=== PATIENT | male | born 1940 | race Caucasian/White ===

== ENCOUNTER 2023-09-20 14:29 | Inpatient (IN) | payer MEDICARE, BC, SELFPAY ==
[2023-09-20] VITALS (12 sets, daily range): BP systolic 102–169; BP diastolic 50–80; PULSE 63–71; BMI 21.1; BMI 20.5
[2023-09-20 09:36] LABS: % Basophils 0.2 % (0-2); % Immature Granulocytes 0.4 % (0-0.5); % Lymphocytes 8.2 % (20.5-51.1); % Neutrophils 84.2 % (42.2-75.2); Absolute Immature Granulocytes 0.1 10^3/uL (0-0.05); Absolute Lymphocytes 1.2 10^3/uL (1.2-3.4); Absolute Neutrophils 12.5 10^3/uL (1.4-6.5); Hematocrit 37.1 % (39.0-52.0); Hemoglobin 12.7 g/dL (13.0-18.0); Mean Corp Hgb Conc. 34.2 g/dL (33.0-37.0); Mean Corpuscular Hgb 30.5 pg (27.0-31.0); Mean Platelet Volume 10.7 fL (7.4-10.4); Nucleated Red Blood Cells % 0 % (-); Platelet Count 251 10^3/uL (130-400); Red Blood Cell Count 4.17 10^6/uL (4.70-6.10); Red Cell Dist. Width 13.4 % (11.5-14.5); White Blood Cell Count 14.9 10^3/uL (4.8-10.8)
[2023-09-20 09:46] LABS: APTT 29.8 Sec (23.4-35.0); INR 1.11; PT 14.1 Sec (11.4-14.6)
[2023-09-20 09:57] LABS: ALT (SGPT) 23 U/L (0-50); AST (SGOT) 28 U/L (17-59); Albumin 3.9 g/dl (3.5-5.0); Alkaline Phosphatase 104 U/L (38-126); Blood Urea Nitrogen 26 mg/dl (9-20); Calcium 9.4 mg/dl (8.4-10.2); Carbon Dioxide 25 mmol/L (22-30); Chloride 107 mmol/L (98-107); Glucose 457 mg/dl (70-99); Potassium 4.4 mmol/L (3.5-5.1); Sodium 138 mmol/L (135-145); Total Bilirubin 0.8 mg/dl (0.2-1.3); Total Protein 6.3 g/dl (6.3-8.2); eGFR 45.34
--- NOTE | 2023-09-20 10:20 | ED.GENMED ---
History of Present Illness
General
Chief Complaint: Male Genito-Urinary Symptoms
Source: patient, spouse and family (Daughter at bedside)
Exam Limitations: dementia
Time Seen by Provider: 09/20/23 10:20
Nursing documentation reviewed up to this point in time: agreed with
Travel History
Have you had any contact with someone who has COVID-19?: No
Do you have any symptoms of coronavirus? Fever > 100 degrees, chills, cough, shortness of breath, sore throat, loss of taste or smell, muscle aches, or headache?: No
History of Present Illness
History of Present Illness:
83-year-old male with history of Alzheimer's dementia, cardiac stent, on Plavix, defibrillator implant, NIDDM, HTN, HLD presents stating he had taylor blood in his urine for the past few days.
states he started urinating bloody urine 2 days ago. 1 AM this morning patient got out of bed and said he was going to go into the other room, he walked there and then his heard him calling, she arrived to find him on the floor. There
was no loss of consciousness and no significant injury she was able to help him up. He fell again at 3 AM and she found him on the floor again, no loss of consciousness was able to help him up.
She states he has been more confused than usual lately. There has been no nausea or vomiting, patient denies headache, chest pain, SOB, abdominal pain.
He is able to articulate his urine problem but when asked he states he is having problems pointing to penis, states he has pain with urinating. No fever.
Past History
Past History
ED Past Medical History: HTN, Hypercholesterolemia and NIDDM
ED Past Surgical History: Cardiac (Defibrillator, cardiac stent)
Social History
Tobacco: Non-smoker
Alcohol: None
Personal:
Living: with family
Employment: Retired
Review of Systems
Review of Systems
Allergies reviewed?: Yes
All Other Systems: ROS reviewed and negative except as documented in HPI and ROS
Constitutional: Denies fever, fatigue or chills
Respiratory: Denies trouble breathing
Cardiac: Denies chest pain or syncope
ABD/GI: Denies abdominal pain, nausea, vomiting or diarrhea
: Reports dysuria and other (Bloody urine)
Musculoskeletal: Denies edema, neck pain or back pain
Skin: Reports no symptoms
Neurological: Reports other (More confused the past several days per family); Denies headache, weakness or numbness
Phy Exam
Physical Exam
Physical Exam:
GENERAL: No acute distress. A&Ox3.
CONSTITUTIONAL: Afebrile.
EYES: PERRL, conjunctivae normal
Neck: Supple
ENMT: moist mucus membranes, Pharynx nl
RESPIRATORY: Regular respirations, nonlabored, lungs clear.
CARDIOVASCULAR: Regular rate and rhythm, no murmurs, no rubs.
GI: Soft, nontender, normal BS
dried blood at urethral opening.
MUSCULOSKELETAL: No spinal bony tenderness. Back and ribs nontender. Moves with ease. Well perfused. No edema
SKIN: Warm, dry, pale
PSYCH: Normal mood and affect. Well kept, interactive.
NEUROLOGIC: Awake, alert and oriented. Mildly confused. No focal neurological deficits. Ambulates at his baseline steadily but slowly.
Course
Orders/Labs/Results
Orders:
Orders
09/20/23
Electrocardiogram (*1) Stat
Comment: ALREADY DONE
09/20/23 09:29
Type+Screen Urgent
Complete Blood Count/With Diff Urgent
Comprehensive Metabolic Panel Urgent
PTT Urgent
Prothrombin Time Urgent
09/20/23 10:23
0.9% Sodium Chloride 1000 ml [Nss] 1,000 ml IV BOLUS
09/20/23 10:39
Bladder Scan- Treatment ONCE
09/20/23 10:46
CT Cervical Spine W/o Iv Contr Urgent
Comment:
Reason For Exam: fall x 2, dementia, no neuro deficits
CT Head W/o Iv Contrast Urgent
Comment:
Reason For Exam: fall x 2, hit head, dementia
09/20/23 11:13
Tavarez [Tavarez Placement- Treatment] ONCE
Reason for insertion: Acute Kidney Injury
09/20/23 11:36
Urinalysis Reflex To Culture Urgent
Date Specimen was Collected: 09/20/23
Time Specimen was Collected: 09:05
Urine Microscopic Reflex Cult Urgent
09/20/23 13:38
Bedside Glucose- Treatment ONCE
09/20/23 14:11
Admit/Transfer Patient As Directed
Co-Sign Provider:
Level of Care: Inpatient admission
Assign to:: Medical/Surgical
Physician / Group: Urvashi
Diagnosis: Urinary Retention; Elevated Creatinine; Hyperglycemia
Reason for Hospitalization: IVFs
Expected length of stay greater than two midnights?: Yes
ELOS- Estimated Length of Stay in days: 3
I certify the patient meets the requirements for IP care: Yes
09/20/23 14:14
Code Status As Directed
Resuscitation Status: Full Code
09/20/23 16:26
0.9% Sodium Chloride 1000 ml [Nss] 1,000 ml IV 80 mls/hr
Acetaminophen [Tylenol] 650 mg PO Q4HPRN PRN
Dextrose 50%-Water [Dextrose 50% Syringe] 12.5 grams IV [id number] PRN
Glucagon [GlucaGen] 1 mg IM PRN PRN
Tamsulosin [Flomax] 0.4 mg PO DAILY
09/20/23 16:26
Activity As Directed
Activity Level: Out of Bed- Chair
Bedside Glucose Monitoring As Directed
Frequency: AC&HS
Comment: Change to q6h if pt on TPN, tube feeding or not eating
I&O [Intake/ Output] As Directed
Frequency: q12h
Orthostatic Vital Signs As Directed
Orthostatic VS Frequency: BID
Pneumatic Compression Sleeves As Directed
Type: Knee high
Vital Signs As Directed
Frequency: Per unit guidelines
Weight As Directed
Frequency: Daily
Ot Eval And Treat Routine
Pt Eval And Treat Routine
Activity Level: Out of Bed-Early Mobility
DX Deep Vein Thrombosis Video Routine
09/20/23 16:30
Insulin Aspart Corrective Low [Novolog Flexpen-Low Resistance] See Protocol SC AC
09/20/23 22:00
Atorvastatin [Lipitor] 40 mg PO HS
09/21/23 Breakfast
2000 calorie (17 carb) Diabetic
At Your Request: Limited Participation
Basic Metabolic Panel IN AM
Complete Blood Count/No Diff IN AM
Glycohemoglobin (HgbA1c) IN AM
09/21/23 08:00
Amiodarone [Pacerone] 200 mg PO DAILY
Aspirin Low Dose EC [Aspir Low (Enteric Coated)] 81 mg PO DAILY
Clopidogrel Bisulfate [Plavix] 75 mg PO DAILY
Finasteride [Proscar] 5 mg PO DAILY
Metoprolol Xl [Toprol Xl] 100 mg PO DAILY
Abnormal Lab Results
09/20/23 09/20/23 09/20/23
09:29 11:36 13:42
WBC 14.9 H 10^3/uL
(4.8-10.8)
RBC 4.17 L 10^6/uL
(4.70-6.10)
Hgb 12.7 L g/dL
(13.0-18.0)
Hct 37.1 L %
(39.0-52.0)
MPV 10.7 H fL
(7.4-10.4)
Abs Immat Gran (auto) 0.1 H 10^3/uL
(0-0.05)
Absolute Neuts (auto) 12.5 H 10^3/uL
(1.4-6.5)
Absolute Monos (auto) 1.0 H 10^3/uL
(0.1-0.6)
Neutrophils % 84.2 H %
(42.2-75.2)
Lymphocytes % 8.2 L %
(20.5-51.1)
BUN 26 H mg/dl
(9-20)
Creatinine 1.5 H mg/dL
(0.7-1.3)
Glucose 457 H* mg/dl
(70-99)
Urine Ketones Trace A
(Negative)
Ur Occult Blood Reflex 4+ A
(Negative)
Urine RBC 30-40 A /HPF
(0-2)
Urine Bacteria (Reflex) Few A
(Negative)
Urine Glucose 3+ A
(Negative)
POC Glucose 342 H mg/dl
(70-99)
09/20/23 09:29
09/20/23 09:29
Vital Signs
Initial and Last Documented VS:
Initial Vital Signs
Temp Pulse Resp BP Pulse Ox
98.6 F 73 16 146/60 99
09/20/23 08:45 09/20/23 08:45 09/20/23 08:45 09/20/23 08:45 09/20/23 08:45
Last Documented Vital Signs
Temp Pulse Resp BP Pulse Ox
98.7 F 60 12 147/77 98
09/20/23 17:01 09/20/23 18:16 09/20/23 17:01 09/20/23 18:16 09/20/23 17:01
MDM/Problems Addressed
Differential Diagnosis Includes:
DM hyperglycemia, DKA, infection, UTI, bladder bladder malignancy
MDM/Problems Addressed:
83-year-old male with history of Alzheimer's dementia, cardiac stent, on Plavix, defibrillator implant, NIDDM, HTN, HLD presents stating he had taylor blood in his urine for the past few days.
states he started urinating bloody urine 2 days ago. 1 AM this morning patient got out of bed and said he was going to go into the other room, he walked there and then his heard him calling, she arrived to find him on the floor. There
was no loss of consciousness and no significant injury she was able to help him up. He fell again at 3 AM and she found him on the floor again, no loss of consciousness was able to help him up.
She states he has been more confused than usual lately. There has been no nausea or vomiting, patient denies headache, chest pain, SOB, abdominal pain.
He is able to articulate his urine problem but when asked he states he is having problems pointing to penis, states he has pain with urinating. No fever.
09/20/2023 1021 AM
CBC: WBC 14.9
CMP: BUN/creat 26/1.5, no previous records to compare, glucose 457
09/20/2023 1114 AM
Postvoid bladder scan over 500 and bladder
Will order [address] way tavarez catheter in anticipation of possible CBI
09/20/2023 1248 PM
Tavarez inserted, there was a dried blood around the tip of the penis, urine was initially pink-tinged after IVFs urine now starting to get a dark jose color. No clots
UA: 4+ occult blood, 30-40 RBCs, no WBCs
Head CT: Radiology report read: No acute intracranial abnormalities
C-spine CT radiology report read: No acute abnormality. DJD
No anion gap
09/20/2023 1343 PM
After IV fluids repeat fingerstick blood sugar
Patient is an elderly frail male with a generalized weakness, two falls during the night, more confused, hyperglycemia, urine retention, hematuria, abnormal kidney functions (nothing to compare historically)
Plan: Admit, Hospitalist notified of admission
Chronic conditions affecting care: DM, HTN and CAD
*Critical Care Note
Total Time (30-74mins, 75-104mins- exclusive of procedures): Not Applicable
ED Attending Note
-
Portions of this chart may have been created with voice recognition software.� Occasional wrong word or��sound alike� substitutions may have occurred due to the inherent limitations of voice recognition software.
Discharge Plan
Departure
Patient Disposition: Admit
Date of Disposition: 09/20/23
Time of Disposition: 13:50
Presentation/result/management discussed w/ accepting MD/DO: Hospitalist
Condition: Fair
Discharge Problem:
Weakness generalized, Hematuria, Acute retention of urine, CASEY (acute kidney injury), Fall, Hyperglycemia due to diabetes mellitus
Interventions
Interventions:
*Risk Screen - Suicide Last Done: 09/20/23 17:06
*General Assessment Last Done: 09/20/23 08:45
*Neglect/Abuse Screening Last Done: 09/20/23 08:45
ED- Fall Risk Assessment Last Done: 09/20/23 16:26
*ED COVID-19 Vaccine History Last Done: 09/20/23 17:06
*Nursing Disposition Last Done: 09/20/23 16:26
ED-Male Genitourinary Assessment Last Done: 09/20/23 10:41
Discharge Date and Time
Discharge Date/Time: 09/20/23 16:32
--- NOTE | 2023-09-20 10:46 | EDRN ---
per , pt was found on the floor at 1am and at 3am this morning. unknown LOC but pt is on plavix. states pt has been more confused than normal. pt answers all orientation questions slowly but correctly. states the pt normally ambulates
with a cane. also states the pt has had hematuria x2 days.
[2023-09-20] MEDS: NSS 1000 IV ×2 (11:37→16:57)
[2023-09-20 11:46] LABS: Urine Albumin Trace (Neg - Trace); Urine Bilirubin Negative (Negative); Urine Character Clear (Clear); Urine Color Yellow; Urine Glucose 3+ (Negative); Urine Ketone Trace (Negative); Urine Leukocyte Negative (Negative); Urine Nitrite Negative (Negative); Urine Occult Blood 4+ (Negative); Urine Specific Gravity 1.015 (<1.030); Urine Urobilinogen Negative (Neg - 1+)
[2023-09-20 11:51] LABS: Urine Bacteria Few (Negative); Urine Red Blood Cell 30-40 /HPF (0-2); Urine White Cell 0-2 /HPF (0-5)
[2023-09-20 13:44] LABS: Glucose - Point of Care 342 mg/dl (70-99)
--- NOTE | 2023-09-20 14:26 | HPS.HSE ---
Addendum entered and electronically signed by Marcelino Landin MD 09/20/23 15:49:
Pt is obviously weak with decreased cognitive fxn
Seen independently and agree with PA note
Lungs clear
CV reg
Abd soft, nondistended
Imp:Bladder outlet obstruction
NIDDM with hyperglycemia
SDAT
P:IVF
recheck UA with C&S
empiric abx
reviewed with EPI Morfin
Original Note:
Family Physician
-
Family Physician: Kenya Mariee
Chief Complaint
-
Multiple Falls
History of Present Illness
Pt is an 83yo M with a past medical history of HTN, HLD, DM-II, BPH and Dementia who is presenting to the ED c/o having fallen twice last night. History was limited due to cognitive impairment. He reports having difficulty sleeping last night due to
abdominal discomfort. He states he had gotten up and fallen twice throughout the night prior to being brought into the hospital by his . The patient was unable to provide any additional details. Patient's was initially in the emergency
department but left to return home. I did attempt to call patient's without answer.
Medical History
Past Medical History
Past Medical History: Reports Other
Additional Past Medical History:
Coronary Artery Disease s/p Stent in December 2022
Essential Hypertension
Hyperlipidemia
Diabetes Mellitus
Alzheimer's Dementia
BPH
Past Surgical History: Reports Other
Additional Past Surgical History:
Defibrillator
Social History
Unable to obtain full social history at this time due to: Dementia
Family History
Family History: Unable to Obtain
Allergies / Home Medications
Allergies reflects when Allergies were last updated in [facility].
Home Medications with original date entered in [facility]
Allergy/Medication List:
Allergies
Allergy/AdvReac Type Severity Reaction Status Date / Time
aspirin Allergy BLEEDING Verified 09/20/23 08:44
Home Medications
acetaminophen 325 mg tablet (Tylenol) 650 mg PO Q4HPRN PRN mild pain 09/20/23
amiodarone 200 mg tablet 200 mg PO DAILY 09/20/23
aspirin 81 mg tablet,delayed release 81 mg PO DAILY 09/20/23
atorvastatin 40 mg tablet (Lipitor) 40 mg PO HS 09/20/23
clopidogrel 75 mg tablet (Plavix) 75 mg PO DAILY 09/20/23
cyanocobalamin (vitamin B-12) 1,000 mcg tablet 1,000 mcg PO DAILY 09/20/23
finasteride 5 mg tablet 5 mg PO DAILY 09/20/23
metformin 500 mg tablet 500 mg PO BID 09/20/23
metoprolol succinate 200 mg tablet,extended release 24 hr (Toprol XL) 100 mg PO DAILY 09/20/23
Review of Systems
-
Unable to obtain full review of systems at this time due to: Dementia
Physical Exam
Vital Signs
Vital Signs
Temp Pulse Resp BP Pulse Ox
98.6 F 62 15 159/62 96
09/20/23 08:45 09/20/23 14:15 09/20/23 14:15 09/20/23 14:00 09/20/23 14:15
Physical Exam
General: Comfortable and Conversant
HEENT: Moist mucous membranes and Atraumatic
Respiratory: Clear and Non Labored Respirations
Cardiac: S1/S2 and Regular Rhythm
GI: Soft and Non Tender
Genito-urinary: Cintron
Musculoskeletal: No Clubbing, No Cyanosis and No Edema
Skin: Warm and Dry
Neuro: Awake, Alert and Nonfocal/grossly intact
Psych: Calm
Laboratory Results
-
09/20/23 09:29
09/20/23 09:29
Laboratory Results
PT 14.1 Sec (11.4-14.6) 09/20/23 09:29
INR 1.11 09/20/23:
APTT 29.8 Sec (23.4-35.0) 09/20/23:
Total Bilirubin 0.8 mg/dl (0.2-1.3) 09/20/23:
AST 28 U/L (17-59) 09/20/23:
ALT 23 U/L (0-50) 09/20/23:
Alkaline Phosphatase 104 U/L (38-126) 09/20/23:
Data Reviewed
-
CT Scan: Report Reviewed by me
Lab Data: Labs Reviewed by me
Impression/Plan
-
Elevated Creatinine, suspect CASEY in setting of urinary retention
-Continue IVFs
-Recheck creatinine in AM
Urinary Retention
-Cintron catheter placed in ED
-Start Flomax
-Recheck repeat urinalysis with reflex to culture
-Start Rocephin after repeat urine sample obtained
Type II Diabetes Mellitus - Uncontrolled
-Check HgbA1c
-Hold metformin due to mildly elevated creatinine
-Monitor sugars and continue coverage insulin
Coronary Artery Disease s/p Stent in December 2022 (unknown hospital)
-Continue aspirin and Plavix
-Patient is maintained on amiodarone though the exact reason is unknown
Essential Hypertension
-Continue metoprolol
Hyperlipidemia
-Continue atorvastatin
Alzheimer's Dementia
-Monitor for mood/behavior changes
BPH
-Continue finasteride
DVT proph: SCDs
Code Status: Attempted to call to review code status without answer at home. Patient will be Full Code until able to review with family.
[2023-09-20 15:02] LABS: Urine Albumin 1+ (Neg - Trace); Urine Bilirubin Negative (Negative); Urine Character Slightly Cloudy (Clear); Urine Color Straw; Urine Glucose 3+ (Negative); Urine Ketone Negative (Negative); Urine Leukocyte Trace (Negative); Urine Nitrite Negative (Negative); Urine Occult Blood 4+ (Negative); Urine Specific Gravity 1.015 (<1.030); Urine Urobilinogen Negative (Neg - 1+)
[2023-09-20 15:09] LABS: Urine Amorphous SEEN
[2023-09-20 15:10] LABS: Urine Red Blood Cell >100 /HPF (0-2)
[2023-09-20 15:11] LABS: Urine Bacteria Moderate (Negative)
[2023-09-20] MEDS: ROCEPHIN 1000 MG IV (15:19)
[2023-09-20] MEDS: FLOMAX 0.400000000000000022 MG PO (16:56)
[2023-09-20 17:01] LABS: Glucose - Point of Care 292 mg/dl (70-99)
[2023-09-20] MEDS: NOVOLOG FLEXPEN-LOW RESISTANCE 2 UNITS SC (17:41)
--- NOTE | 2023-09-20 18:26 | PTCARENOTE ---
Notified provider & crosscover via TT that the patient had some blood-tinged urine in his tavarez bag.
[2023-09-20] MEDS: LIPITOR 40 MG PO (21:24)
[2023-09-20 21:25] LABS: Glucose - Point of Care 325 mg/dl (70-99)
[2023-09-21] MEDS: NSS 1000 IV ×2 (05:01→17:51)
[2023-09-21 05:16] VITALS: BMI 21.0
[2023-09-21 07:08] LABS: Hematocrit 35.9 % (39.0-52.0); Hemoglobin 11.7 g/dL (13.0-18.0); Mean Corp Hgb Conc. 32.6 g/dL (33.0-37.0); Mean Corpuscular Hgb 30.4 pg (27.0-31.0); Mean Corpuscular Volume 93.2 fL (80.0-94.0); Mean Platelet Volume 11.1 fL (7.4-10.4); Platelet Count 210 10^3/uL (130-400); Red Blood Cell Count 3.85 10^6/uL (4.70-6.10); Red Cell Dist. Width 13.5 % (11.5-14.5); White Blood Cell Count 10.5 10^3/uL (4.8-10.8)
[2023-09-21 07:18] LABS: Glucose - Point of Care 244 mg/dl (70-99)
[2023-09-21 07:32] LABS: Blood Urea Nitrogen 24 mg/dl (9-20); Calcium 8.4 mg/dl (8.4-10.2); Carbon Dioxide 28 mmol/L (22-30); Chloride 110 mmol/L (98-107); Estimated Creatinine Clearance 45 ml/min; Glucose 233 mg/dl (70-99); Potassium 4.6 mmol/L (3.5-5.1); Sodium 139 mmol/L (135-145); eGFR 59.26
[2023-09-21 07:45] VITALS: BP 168/74
[2023-09-21] MEDS: ASPIR LOW (ENTERIC COATED) 81 MG PO (08:13)
[2023-09-21] MEDS: PACERONE 200 MG PO (08:13)
[2023-09-21] MEDS: FLOMAX 0.400000000000000022 MG PO (08:13)
[2023-09-21] MEDS: PROSCAR 5 MG PO (08:13)
[2023-09-21] MEDS: NOVOLOG FLEXPEN-LOW RESISTANCE 2 UNITS SC (08:13)
[2023-09-21] MEDS: PLAVIX 75 MG PO (08:13)
[2023-09-21] MEDS: TOPROL XL 100 MG PO (08:16)
[2023-09-21 08:50] LABS: Glycohemoglobin (HgbA1c) 12.8 % (4.0-5.6)
--- NOTE | 2023-09-21 09:27 | W.PN.HOSP.TC ---
Today's Communication/Plan
-
see bold
Assessment / Plan
Assessment / Plan
#Acute urinary retention
#BPH
Tavarez inserted in the ED, started on Flomax
Continue proscar, check RBUS
#Suspected urinary tract infection
Continue Rocephin day 2, follow-up on cultures
#Acute kidney injury
Due to urinary retention
Creatinine 1.2 today, was 1.5 upon admission
#Uncontrolled type 2 diabetes
Hemoglobin A1c 12.8
He is only on metformin at home
Start Lantus 15 units at bedtime, NovoLog 5 units AC 3 times daily
Consult diabetes nurse practitioner
Coronary Artery Disease s/p Stent in December 2022 (unknown hospital)
-Continue aspirin and Plavix
-Patient is maintained on amiodarone though the exact reason is unknown
Essential Hypertension
-Continue metoprolol
Hyperlipidemia
-Continue atorvastatin
Alzheimer's Dementia
-Monitor for mood/behavior changes
DVT proph: SCDs
Code Status:� DNR
Updated on phone 09/21
Total time spent to see the patient on the floor, examine the patient, review data and lab results, discuss treatment plan with patient, nursing staff around 51 minutes.
Physical Exam
General: Elderly, no acute distress
HEENT: Normocephalic, Atraumatic, EOMI, MMM
Respiratory: Clear to Auscultation bilaterally
Cardiac: Normal S1/S2, Regular Rate and Rhythm
GI: Soft, Nontender, Nondistended, Normal Bowel Sounds
: +tavarez
Extremities: No Clubbing, Cyanosis, or Edema
Neuro: Pleasantly confused
Anticipated Discharge: 24 - 48 hours
Subjective/Interval History
-
Date of Service: September 21, 2023
Patient reports feeling better. Abdominal discomfort relieved with Tavarez. Continues to be confused.
Objective Data
-
Labs:
Laboratory Results
09/21/23
05:54
WBC 10.5
Hgb 11.7 L
Hct 35.9 L
Plt Count 210
Sodium 139
Potassium 4.6
Chloride 110 H
Carbon Dioxide 28
BUN 24 H
Creatinine 1.2
Glucose 233 H
Calcium 8.4
Vital Signs:
Vital Signs
Temp Pulse Resp BP Pulse Ox
98.1 F 58 16 168/74 97
09/21/23 07:45 09/21/23 07:45 09/21/23 07:45 09/21/23 07:45 09/21/23 07:45
I&O
09/20/23 09/21/23 09/22/23
06:59 06:59 06:59
Intake Total 1919 / 1919
Output Total 1500 / 1500
Balance 420 / 420
[2023-09-21] MEDS: NOVOLOG FLEXPEN 5 UNITS SC ×2 (09:38→12:18)
[2023-09-21 11:17] VITALS: BP 155/61; PULSE 64; O2SAT 97
[2023-09-21 11:21] VITALS: BP 155/61; PULSE 64; O2SAT 97
[2023-09-21 12:00] VITALS: BP 152/65; BP 162/59; BP 174/62; PULSE 63; PULSE 64; PULSE 68
[2023-09-21 12:08] LABS: Glucose - Point of Care 313 mg/dl (70-99)
[2023-09-21] MEDS: NOVOLOG FLEXPEN-LOW RESISTANCE 4 UNITS SC (12:17)
[2023-09-21] MEDS: STERILE WATER FOR INJECTION 10 ML IV (14:31)
[2023-09-21] MEDS: ROCEPHIN 1000 MG IV (14:31)
--- NOTE | 2023-09-21 14:37 | PN.DE.MGMTRT ---
Insulin Management
- -
09/21/2023: Diabetes management Consult
83 year old male admitted with bladder outlet obstruction with suspected UTI.
PMH includes: HTN, HLD, BPH, Dementia and DM-II, A1C 12.8%. Pt is pleasantly confused, unable to interview due to cognitive impairment, no family at bedside. Chart review indicates pt was taking Metformin 500mg BID, no other DM medications [employer].
Glucose was 457 on admission, Cr 1.5-->1.2, eGFR 59.26 today.
Current diabetes regimen includes: Lantus 15 units (1st dose scheduled for tonight @ ), NovoLog 5 units AC and low corrective
Glucose has remained consistently elevated, premeal 200 to 300's with FBG of 233 this AM.
Will increase AC NovoLog from 5 units to 7 units and change to moderate corrective.
Resume Metformin at increased dose of 1000 mg BID, 1st dose at 1700 with dinner.
Cont Lantus 15 units dose that has been ordered for tonight, will reassess in AM and adjust insulin regimen as necessary.
Diabetes History
- -
Type of Diabetes: 2
Pre-Admission Diabetes Regimen
09/21/23
05:54
Creatinine 1.2
Lab Results
Hemoglobin A1c 12.8 % (4.0-5.6) H 09/21/23 05:54
Insulin Pump Settings
IP Diabetes Regimen
09/20/23 09/20/23 09/21/23
17:00 21:23 05:54
Glucose 233 H
POC Glucose 292 H 325 H
09/21/23 09/21/23
07:17 12:06
Glucose
POC Glucose 244 H 313 H
Meal type: Breakfast
Amount consumed: 100%
Patient Education
[2023-09-21 15:15] VITALS: BP 166/70; BP 170/74
--- NOTE | 2023-09-21 15:58 | CM ---
compensation manager reviewed patient's chart and met with patient and spoke with patient's spouse by phone, per patient's spouse patient is independent with adl's and uses a cane with ambulation, patient's home is one story, no steps to enter. Patient has
a prescription plan and uses [facility] pharmacy.
PCP: Kenya Mariee
Plan; To follow with patient progress for discharge planning needs.
[2023-09-21 16:28] VITALS: BMI 21.0
[2023-09-21 16:40] LABS: Glucose - Point of Care 263 mg/dl (70-99)
[2023-09-21] MEDS: NOVOLOG FLEXPEN 7 UNITS SC (16:50)
[2023-09-21] MEDS: GLUCOPHAGE 1000 MG PO (16:50)
[2023-09-21] MEDS: NOVOLOG FLEXPEN-MODERATE RESISTANCE 5 UNITS SC (16:51)
[2023-09-21] MEDS: LIPITOR 40 MG PO (21:49)
[2023-09-21 21:50] LABS: Glucose - Point of Care 154 mg/dl (70-99)
[2023-09-21] MEDS: LANTUS 0.149999999999999994 UNITS SC (21:50)
[2023-09-21] MEDS: TYLENOL 650 MG PO (21:50)
[2023-09-21 22:45] VITALS: BP 173/72
[2023-09-22] MEDS: NSS 1000 IV (04:50)
[2023-09-22] MEDS: TOPROL XL 100 MG PO (05:05)
[2023-09-22] MEDS: PACERONE 200 MG PO (05:05)
[2023-09-22] MEDS: TYLENOL 650 MG PO (05:08)
--- NOTE | 2023-09-22 07:47 | PN.DE.MGMTRT ---
Insulin Management
- -
09/21/2023: Diabetes management Consult
83 year old male admitted with bladder outlet obstruction with suspected UTI.
PMH includes: HTN, HLD, BPH, Dementia and DM-II, A1C 12.8%. Pt is pleasantly confused, unable to interview due to cognitive impairment, no family at bedside. Chart review indicates pt was taking Metformin 500mg BID, no other DM medications [employer].
Glucose was 457 on admission, Cr 1.5-->1.2, eGFR 59.26 today.
Current diabetes regimen includes: Lantus 15 units (1st dose scheduled for tonight @ HS), NovoLog 5 units AC and low corrective
Glucose has remained consistently elevated, premeal 200 to 300's with FBG of 233 this AM.
Will increase AC NovoLog from 5 units to 7 units and change to moderate corrective.
Resume Metformin at increased dose of 1000 mg BID, 1st dose at 1700 with dinner.
Cont Lantus 15 units dose that has been ordered for tonight, will reassess in AM and adjust insulin regimen as necessary.
09/22/2023 Diabetes Management Follow up
Novolog increased from 5 to 7 units, first dose with dinner. HS glucose 154. Did require 5 units corrective insulin. Will increase AC novolog to 10 units.. Lantus 15 units started @ HS last night. Fasting glucose not yet reported, will assess
to determine in adjustment needed.
Diabetes History
- -
Type of Diabetes: 2
Pre-Admission Diabetes Regimen
Lab Results
Hemoglobin A1c 12.8 % (4.0-5.6) H 09/21/23 05:54
Insulin Pump Settings
IP Diabetes Regimen
09/21/23 09/21/23 09/21/23
12:06 16:38 21:49
POC Glucose 313 H 263 H 154 H
Meal type: Breakfast
Amount consumed: 100%
Patient Education
[2023-09-22 07:55] LABS: Glucose - Point of Care 169 mg/dl (70-99)
[2023-09-22 08:00] VITALS: BP 108/75
[2023-09-22] MEDS: NOVOLOG FLEXPEN SC (08:21)
[2023-09-22 08:22] LABS: Hematocrit 39.5 % (39.0-52.0); Mean Corp Hgb Conc. 32.9 g/dL (33.0-37.0); Mean Corpuscular Volume 91.2 fL (80.0-94.0); Mean Platelet Volume 10.7 fL (7.4-10.4); Platelet Count 225 10^3/uL (130-400); Red Blood Cell Count 4.33 10^6/uL (4.70-6.10); Red Cell Dist. Width 13.1 % (11.5-14.5); White Blood Cell Count 13.3 10^3/uL (4.8-10.8)
[2023-09-22] MEDS: GLUCOPHAGE 1000 MG PO ×2 (08:23→18:27)
[2023-09-22] MEDS: FLOMAX 0.400000000000000022 MG PO (08:23)
[2023-09-22] MEDS: PLAVIX 75 MG PO (08:23)
[2023-09-22] MEDS: PROSCAR 5 MG PO (08:24)
[2023-09-22] MEDS: ASPIR LOW (ENTERIC COATED) 81 MG PO (08:24)
[2023-09-22 08:54] LABS: Blood Urea Nitrogen 15 mg/dl (9-20); Calcium 8.7 mg/dl (8.4-10.2); Carbon Dioxide 24 mmol/L (22-30); Chloride 102 mmol/L (98-107); Estimated Creatinine Clearance 54 ml/min; Glucose 182 mg/dl (70-99); Magnesium 1.7 mg/dl (1.6-2.3); Potassium 3.6 mmol/L (3.5-5.1); Sodium 137 mmol/L (135-145); eGFR > 60.00
[2023-09-22] MEDS: NOVOLOG FLEXPEN 10 UNITS SC ×3 (09:25→18:27)
[2023-09-22] MEDS: NOVOLOG FLEXPEN-MODERATE RESISTANCE 1 UNITS SC ×2 (09:25→13:42)
--- NOTE | 2023-09-22 10:26 | W.PN.HOSP.TC ---
Today's Communication/Plan
-
see bold
Assessment / Plan
Assessment / Plan
#Acute urinary retention
#BPH
Tavarez inserted in the ED 09/20, started on Flomax
Continue proscar, RBUS negative for hydronephrosis, does show left renal cyst and right renal cyst
PT rec SNF
# UTI ruled out
Urine culture negative, stop Rocephin
#Acute kidney injury
Due to urinary retention
Creatinine 1.0 today, was 1.2, was 1.5 upon admission
#Uncontrolled type 2 diabetes
Hemoglobin A1c 12.8
He is only on metformin at home
Continue insulin adjustments as per diabetes nurse practitioner
Patient has dementia, does not seem comfortable giving insulin
Likely will need oral agents upon discharge, diabetes nurse to meet with
Coronary Artery Disease s/p Stent in December 2022 (unknown hospital)
-Continue aspirin and Plavix
-Patient is maintained on amiodarone though the exact reason is unknown
Essential Hypertension
-Continue metoprolol
Hyperlipidemia
-Continue atorvastatin
Alzheimer's Dementia
-Monitor for mood/behavior changes
DVT proph: SCDs
Code Status:� DNR
Updated on phone 09/21
Physical Exam
General: Elderly, no acute distress
HEENT: Normocephalic, Atraumatic, EOMI, MMM
Respiratory: Clear to Auscultation bilaterally
Cardiac: Normal S1/S2, Regular Rate and Rhythm
GI: Soft, Nontender, Nondistended, Normal Bowel Sounds
: +tavarez
Extremities: No Clubbing, Cyanosis, or Edema
Neuro: Pleasantly confused
Anticipated Discharge: Within 24 hours
Subjective/Interval History
-
Date of Service: September 22, 2023
No acute events.
Objective Data
-
Labs:
Laboratory Results
09/22/23
07:51
WBC 13.3 H
Hgb 13.0
Hct 39.5
Plt Count 225
Sodium 137
Potassium 3.6
Chloride 102
Carbon Dioxide 24
BUN 15
Creatinine 1.0
Glucose 182 H
Calcium 8.7
Vital Signs:
Vital Signs
Temp Pulse Resp BP Pulse Ox
97.9 F 75 18 108/75 96
09/22/23 08:00 09/22/23 08:00 09/22/23 08:00 09/22/23 08:00 09/22/23 08:00
I&O
09/21/23 09/22/23 09/23/23
06:59 06:59 06:59
Intake Total 1919 / 0 2140 / 2140
Output Total 1500 / 1500 1000 / 1000
Balance 420 / 420 1140 / 1140
[2023-09-22 11:03] VITALS: BP 157/69; PULSE 78; O2SAT 95
--- NOTE | 2023-09-22 11:59 | PN.DE.MGMTRT ---
Insulin Management
- -
09/21/2023: Diabetes management Consult
83 year old male admitted with bladder outlet obstruction with suspected UTI.
PMH includes: HTN, HLD, BPH, Dementia and DM-II, A1C 12.8%. Pt is pleasantly confused, unable to interview due to cognitive impairment, no family at bedside. 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
Glucose was 457 on admission, Cr 1.5-->1.2, eGFR 59.26 today.
Current diabetes regimen includes: Lantus 15 units (1st dose scheduled for tonight @ HS), NovoLog 5 units AC and low corrective
Glucose has remained consistently elevated, premeal 200 to 300's with FBG of 233 this AM.
Will increase AC NovoLog from 5 units to 7 units and change to moderate corrective.
Resume Metformin at increased dose of 1000 mg BID, 1st dose at 1700 with dinner.
Cont Lantus 15 units dose that has been ordered for tonight, will reassess in AM and adjust insulin regimen as necessary.
09/22/2023 Diabetes Management Follow up
Novolog increased from 5 to 7 units, first dose with dinner. HS glucose 154. Did require 5 units corrective insulin. Will increase AC novolog to 10 units.. Lantus 15 units started @ HS last night. Fasting glucose not yet reported, will assess
to determine in adjustment needed.
I spoke with patients , she does not want to give insulin injections but she would think about it and let me know.
Diabetes History
- -
Type of Diabetes: 2
Pre-Admission Diabetes Regimen
09/22/23
07:51
Creatinine 1.0
Lab Results
Hemoglobin A1c 12.8 % (4.0-5.6) H 09/21/23 05:54
Insulin Pump Settings
IP Diabetes Regimen
09/21/23 09/21/23 09/21/23
12:06 16:38 21:49
Glucose
POC Glucose 313 H 263 H 154 H
09/22/23 09/22/23
07:51 07:53
Glucose 182 H
POC Glucose 169 H
Patient Education
--- NOTE | 2023-09-22 12:26 | CM ---
CM following re: discharge planning.
Reviewed pt's chart, met with pt and spoke to pt's spouse Roxanne Lyn over the phone to update on discharge plan progress.
PT and OT have been recommending SNF level of care.
Pt is not a great historian. CM spoke to pt's spouse Roxanne Lyn and she stated that she and the pt live at [facility] that is a part of [facility]. Pt's spouse stated that pt has Dementia, they do have 3 children and
daughter helps almost on a daily basis. Per spouse, she and the pt do not drive and they are dependent on family with shopping.
Pt's spouse has been notified that PT and OT recommend SNF level of care and she is requested [facility] SNF.
A referral to [facility] SNF made. Awaiting for determination.
D/c plan: [facility] SNF when medically stable.
CM will follow to assist pt with discharge to [facility] for a short term rehab.
[2023-09-22 12:40] LABS: Glucose - Point of Care 171 mg/dl (70-99)
[2023-09-22 16:00] VITALS: BP 157/66
[2023-09-22 17:56] LABS: Glucose - Point of Care 96 mg/dl (70-99)
[2023-09-22] MEDS: NOVOLOG FLEXPEN-MODERATE RESISTANCE SC (18:10)
[2023-09-22 21:28] LABS: Glucose - Point of Care 66 mg/dl (70-99)
[2023-09-22 21:52] LABS: Glucose - Point of Care 75 mg/dl (70-99)
[2023-09-22] MEDS: LANTUS SC (22:47)
[2023-09-22] MEDS: LIPITOR 40 MG PO (22:49)
[2023-09-22 23:45] LABS: Glucose - Point of Care 103 mg/dl (70-99)
--- NOTE | 2023-09-22 23:47 | PTCARENOTE ---
Pt's accucheck was 66. Pt is asymptomatic. Pt given 4 oz orange juice and rechecked blood sugar was 75. House [employer] Diana Perez notified, no new orders at this time. Pt's sugar checked at 2345 was 103. Pt remains asymptomatic. Will continue to
monitor.
[2023-09-22 23:53] VITALS: BP 187/76
[2023-09-23 03:37] LABS: Glucose - Point of Care 127 mg/dl (70-99)
[2023-09-23 03:45] VITALS: BP 173/94
[2023-09-23 05:19] VITALS: BMI 21.1
[2023-09-23 07:30] VITALS: BP 163/93
[2023-09-23 07:34] LABS: Glucose - Point of Care 169 mg/dl (70-99)
[2023-09-23 07:45] LABS: Hematocrit 37.6 % (39.0-52.0); Hemoglobin 12.6 g/dL (13.0-18.0); Mean Corp Hgb Conc. 33.5 g/dL (33.0-37.0); Mean Corpuscular Hgb 29.7 pg (27.0-31.0); Mean Corpuscular Volume 88.7 fL (80.0-94.0); Mean Platelet Volume 10.7 fL (7.4-10.4); Platelet Count 236 10^3/uL (130-400); Red Blood Cell Count 4.24 10^6/uL (4.70-6.10); Red Cell Dist. Width 13.2 % (11.5-14.5); White Blood Cell Count 11.1 10^3/uL (4.8-10.8)
--- NOTE | 2023-09-23 07:56 | PN.DE.MGMTRT ---
Insulin Management
- -
09/21/2023: Diabetes management Consult
83 year old male admitted with bladder outlet obstruction with suspected UTI.
PMH includes: HTN, HLD, BPH, Dementia and DM-II, A1C 12.8%. Pt is pleasantly confused, unable to interview due to cognitive impairment, no family at bedside. 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
Glucose was 457 on admission, Cr 1.5-->1.2, eGFR 59.26 today.
Current diabetes regimen includes: Lantus 15 units (1st dose scheduled for tonight @ HS), NovoLog 5 units AC and low corrective
Glucose has remained consistently elevated, premeal 200 to 300's with FBG of 233 this AM.
Will increase AC NovoLog from 5 units to 7 units and change to moderate corrective.
Resume Metformin at increased dose of 1000 mg BID, 1st dose at 1700 with dinner.
Cont Lantus 15 units dose that has been ordered for tonight, will reassess in AM and adjust insulin regimen as necessary.
09/22/2023 Diabetes Management Follow up
Novolog increased from 5 to 7 units, first dose with dinner. HS glucose 154. Did require 5 units corrective insulin. Will increase AC novolog to 10 units.. Lantus 15 units started @ HS last night. Fasting glucose not yet reported, will assess
to determine in adjustment needed.
I spoke with patients , she does not want to give insulin injections but she would think about it and let me know.
09/23/2023 Diabetes Management Follow up
Patient glucose trended down to 66 @ HS. Patient did not receive lantus. After speaking with , she indicated she did not want to give him injections, will try oral medication. Metformin has been resumed at 1000 BID, will add Farxiga 10 mg
daily with Januvia 100 mg. Patient is receiving plavix so Meglitinides are contraindicated. Will continue corrective insulin.
Diabetes History
- -
Type of Diabetes: 2
Pre-Admission Diabetes Regimen
09/22/23
07:51
Creatinine 1.0
Lab Results
Hemoglobin A1c 12.8 % (4.0-5.6) H 09/21/23 05:54
Insulin Pump Settings
IP Diabetes Regimen
09/22/23 09/22/23 09/22/23
07:51 12:39 17:55
Glucose 182 H
POC Glucose 171 H 96
09/22/23 09/22/23 09/22/23
21:25 21:49 23:44
Glucose
POC Glucose 66 L 75 103 H
09/23/23 09/23/23
03:34 07:19
Glucose
POC Glucose 127 H 169 H
Meal type: Lunch
Amount consumed: 100%
Patient Education
[2023-09-23 08:17] LABS: Blood Urea Nitrogen 14 mg/dl (9-20); Calcium 8.5 mg/dl (8.4-10.2); Carbon Dioxide 25 mmol/L (22-30); Chloride 100 mmol/L (98-107); Estimated Creatinine Clearance 54 ml/min; Glucose 171 mg/dl (70-99); Potassium 3.5 mmol/L (3.5-5.1); Sodium 134 mmol/L (135-145); eGFR > 60.00
--- NOTE | 2023-09-23 08:48 | W.PN.HOSP.TC ---
Today's Communication/Plan
-
Void trial
Transition from insulin to oral agents
Assessment / Plan
Assessment / Plan
#Acute urinary retention
#BPH
Tavarez inserted in the ED 09/20, started on Flomax
Continue proscar, RBUS negative for hydronephrosis, does show left renal cyst and right renal cyst
Void trial today
PT rec SNF
# UTI ruled out
Urine culture negative, stopped Rocephin
#Acute kidney injury
Due to urinary retention
Creatinine 1.0 today, was 1.2, was 1.5 upon admission
#Uncontrolled type 2 diabetes
Hemoglobin A1c 12.8
He is only on metformin at home
Patient has dementia, is not comfortable giving insulin
Change from subcu insulin to oral agents as per diabetes nurse practitioner
Coronary Artery Disease s/p Stent in December 2022 (unknown hospital)
-Continue aspirin and Plavix
-Patient is maintained on amiodarone though the exact reason is unknown
Essential Hypertension
-Continue metoprolol
Hyperlipidemia
-Continue atorvastatin
Alzheimer's Dementia
-Monitor for mood/behavior changes
DVT proph: SCDs
Code Status:� DNR
Updated on phone 09/21
Physical Exam
General: Elderly, no acute distress
HEENT: Normocephalic, Atraumatic, EOMI, MMM
Respiratory: Clear to Auscultation bilaterally
Cardiac: Normal S1/S2, Regular Rate and Rhythm
GI: Soft, Nontender, Nondistended, Normal Bowel Sounds
: +tavarez
Extremities: No Clubbing, Cyanosis, or Edema
Neuro: Pleasantly confused
Anticipated Discharge: Within 24 hours
Subjective/Interval History
-
Date of Service: September 23, 2023
No acute events.
Objective Data
-
Labs:
Laboratory Results
09/23/23
06:24
WBC 11.1 H
Hgb 12.6 L
Hct 37.6 L
Plt Count 236
Sodium 134 L
Potassium 3.5
Chloride 100
Carbon Dioxide 25
BUN 14
Creatinine 1.0
Glucose 171 H
Calcium 8.5
Vital Signs:
Vital Signs
Temp Pulse Resp BP Pulse Ox
98.1 F 70 22 163/93 95
09/23/23 07:30 09/23/23 07:30 09/23/23 07:30 09/23/23 07:30 09/23/23 07:30
I&O
09/22/23 09/23/23 09/24/23
06:59 06:59 06:59
Intake Total 2140 / 2140 940 / 940
Output Total 1000 / 1000 2925 / 2925 400 / 400
Balance 1140 / 1140 -1984 / -1984 -400 / -400
[2023-09-23] MEDS: NOVOLOG FLEXPEN-MODERATE RESISTANCE 1 UNITS SC ×2 (10:17→13:36)
[2023-09-23] MEDS: FARXIGA 10 MG PO (10:19)
[2023-09-23] MEDS: FLOMAX 0.400000000000000022 MG PO (10:19)
[2023-09-23] MEDS: PLAVIX 75 MG PO (10:19)
[2023-09-23] MEDS: ASPIR LOW (ENTERIC COATED) 81 MG PO (10:20)
[2023-09-23] MEDS: GLUCOPHAGE 1000 MG PO ×2 (10:20→18:25)
[2023-09-23] MEDS: PROSCAR 5 MG PO (10:20)
[2023-09-23] MEDS: JANUVIA 100 MG PO (10:20)
[2023-09-23] MEDS: PACERONE 200 MG PO (10:21)
[2023-09-23] MEDS: TOPROL XL 100 MG PO (10:26)
[2023-09-23 12:15] LABS: Glucose - Point of Care 182 mg/dl (70-99)
[2023-09-23 15:24] VITALS: BP 160/68
[2023-09-23 16:20] VITALS: BP 160/68; PULSE 70
--- NOTE | 2023-09-23 16:40 | CM ---
Per admissions at [facility], patient has a bed at [facility] tomorrow 09/23/23. Patient will need a COVID test.
Plan; Skilled placement at [facility].
[2023-09-23 17:00] LABS: Glucose - Point of Care 205 mg/dl (70-99)
[2023-09-23] MEDS: NOVOLOG FLEXPEN-MODERATE RESISTANCE 3 UNITS SC (18:26)
[2023-09-23 22:24] LABS: Glucose - Point of Care 186 mg/dl (70-99)
[2023-09-23] MEDS: LIPITOR 40 MG PO (22:34)
[2023-09-23 23:17] VITALS: BP 159/68
[2023-09-24 05:20] VITALS: BMI 21.3
[2023-09-24 06:25] LABS: Hematocrit 36.9 % (39.0-52.0); Hemoglobin 12.3 g/dL (13.0-18.0); Mean Corp Hgb Conc. 33.3 g/dL (33.0-37.0); Mean Corpuscular Hgb 29.8 pg (27.0-31.0); Mean Corpuscular Volume 89.3 fL (80.0-94.0); Mean Platelet Volume 10.7 fL (7.4-10.4); Platelet Count 252 10^3/uL (130-400); Red Blood Cell Count 4.13 10^6/uL (4.70-6.10); Red Cell Dist. Width 13.5 % (11.5-14.5); White Blood Cell Count 9.8 10^3/uL (4.8-10.8)
[2023-09-24 06:58] LABS: Blood Urea Nitrogen 21 mg/dl (9-20); Calcium 8.6 mg/dl (8.4-10.2); Carbon Dioxide 26 mmol/L (22-30); Chloride 102 mmol/L (98-107); Estimated Creatinine Clearance 36 ml/min; Glucose 166 mg/dl (70-99); Potassium 3.8 mmol/L (3.5-5.1); Sodium 134 mmol/L (135-145); eGFR 45.34
[2023-09-24 07:30] VITALS: BP 154/62
[2023-09-24 07:35] LABS: Glucose - Point of Care 207 mg/dl (70-99)
--- NOTE | 2023-09-24 07:43 | PN.DE.MGMTRT ---
Insulin Management
- -
09/21/2023: Diabetes management Consult
83 year old male admitted with bladder outlet obstruction with suspected UTI.
PMH includes: HTN, HLD, BPH, Dementia and DM-II, A1C 12.8%. Pt is pleasantly confused, unable to interview due to cognitive impairment, no family at bedside. 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
Glucose was 457 on admission, Cr 1.5-->1.2, eGFR 59.26 today.
Current diabetes regimen includes: Lantus 15 units (1st dose scheduled for tonight @ HS), NovoLog 5 units AC and low corrective
Glucose has remained consistently elevated, premeal 200 to 300's with FBG of 233 this AM.
Will increase AC NovoLog from 5 units to 7 units and change to moderate corrective.
Resume Metformin at increased dose of 1000 mg BID, 1st dose at 1700 with dinner.
Cont Lantus 15 units dose that has been ordered for tonight, will reassess in AM and adjust insulin regimen as necessary.
09/22/2023 Diabetes Management Follow up
Novolog increased from 5 to 7 units, first dose with dinner. HS glucose 154. Did require 5 units corrective insulin. Will increase AC novolog to 10 units.. Lantus 15 units started @ HS last night. Fasting glucose not yet reported, will assess
to determine in adjustment needed.
I spoke with patients , she does not want to give insulin injections but she would think about it and let me know.
09/23/2023 Diabetes Management Follow up
Patient glucose trended down to 66 @ HS. Patient did not receive lantus. After speaking with , she indicated she did not want to give him injections, will try oral medication. Metformin has been resumed at 1000 BID, will add Farxiga 10 mg
daily with Januvia 100 mg. Patient is receiving plavix so Meglitinides are contraindicated. Will continue corrective insulin.
09/24/2023 Diabetes Management Follow up
After lengthy discussion Patients does not want to administer insulin. Yesterday patient was transitioned from insulin regimen to Farxiga 10 mg daily and Januvia 100 mg daily (due to age sulfonylureas not an option). Glucose range 166 to 205.
Will allow for slightly elevated glucose due to current situation.
Diabetes History
- -
Type of Diabetes: 2
Pre-Admission Diabetes Regimen
09/23/23 09/24/23
06 05:40
Creatinine 1.0 1.5 H
Lab Results
Hemoglobin A1c 12.8 % (4.0-5.6) H 09/21/23 05:54
Insulin Pump Settings
IP Diabetes Regimen
09/23/23 09/23/23 09/23/23
06:24 12:10 16:54
Glucose 171 H
POC Glucose 182 H 205 H
09/23/23 09/24/23 09/24/23
22:22 05:40 07:32
Glucose 166 H
POC Glucose 186 H 207 H
Meal type: Lunch
Amount consumed: 100%
Patient Education
--- NOTE | 2023-09-24 08:43 | W.PN.HOSP.TC ---
Today's Communication/Plan
-
see bold
Assessment / Plan
Assessment / Plan
#Acute urinary retention
#BPH
Tavarez inserted in the ED 09/20, started on Flomax
Continue proscar, RBUS negative for hydronephrosis, does show left renal cyst and right renal cyst
Tavarez removed 09/23, pt has been voiding with PVRs 300-400
Continue monitoring PVR
PT rec SNF
# UTI ruled out
Urine culture negative, stopped Rocephin
#Acute kidney injury
Due to urinary retention
Creatinine 1.5 today after removal of tavarez 09/23, was 1.0, was 1.2, was 1.5 upon admission
Hold metformin, resume IVFs, trend Cr
#Uncontrolled type 2 diabetes
Hemoglobin A1c 12.8
He is only on metformin at home
Patient has dementia, is not comfortable giving insulin
Changed from subcu insulin to oral agents as per diabetes nurse practitioner
Hold metformin due to CASEY
Coronary Artery Disease s/p Stent in December 2022 (unknown hospital)
-Continue aspirin and Plavix
-Patient is maintained on amiodarone though the exact reason is unknown
Essential Hypertension
-Continue metoprolol
Hyperlipidemia
-Continue atorvastatin
Alzheimer's Dementia
-Monitor for mood/behavior changes
DVT proph: SCDs
Code Status:� DNR
Left message on phone 09/24
Physical Exam
General: Elderly, no acute distress
HEENT: Normocephalic, Atraumatic, EOMI, MMM
Respiratory: Clear to Auscultation bilaterally
Cardiac: Normal S1/S2, Regular Rate and Rhythm
GI: Soft, Nontender, Nondistended, Normal Bowel Sounds
: +tavarez
Extremities: No Clubbing, Cyanosis, or Edema
Neuro: Pleasantly confused
Anticipated Discharge: Within 24 hours
Subjective/Interval History
-
Date of Service: September 24, 2023
Patient agitated this morning. Has been voiding.
Objective Data
-
Labs:
Laboratory Results
09/24/23
05:40
WBC 9.8
Hgb 12.3 L
Hct 36.9 L
Plt Count 252
Sodium 134 L
Potassium 3.8
Chloride 102
Carbon Dioxide 26
BUN 21 H
Creatinine 1.5 H
Glucose 166 H
Calcium 8.6
Vital Signs:
Vital Signs
Temp Pulse Resp BP Pulse Ox
97.6 F 58 18 154/62 97
09/24/23 07:30 09/24/23 07:30 09/24/23 07:30 09/24/23 07:30 09/24/23 07:30
I&O
09/23/23 09/24/23 09/25/23
06:59 06:59 06:59
Intake Total 940 / 940 840 / 840
Output Total 2925 / 2925 650 / 650
Balance -1984 / 190 / 190
[2023-09-24] MEDS: NOVOLOG FLEXPEN-MODERATE RESISTANCE 3 UNITS SC ×2 (10:05→14:16)
[2023-09-24] MEDS: GLUCOPHAGE PO (10:07)
[2023-09-24] MEDS: ASPIR LOW (ENTERIC COATED) 81 MG PO (10:48)
[2023-09-24] MEDS: PLAVIX 75 MG PO (10:48)
[2023-09-24] MEDS: PROSCAR 5 MG PO (10:48)
[2023-09-24] MEDS: FLOMAX 0.400000000000000022 MG PO (10:48)
[2023-09-24] MEDS: JANUVIA 100 MG PO (10:49)
[2023-09-24] MEDS: FARXIGA 10 MG PO (11:03)
[2023-09-24] MEDS: TOPROL XL 100 MG PO (11:04)
[2023-09-24] MEDS: PACERONE 200 MG PO (11:05)
[2023-09-24] MEDS: NSS 1000 IV ×2 (12:21→21:26)
[2023-09-24 12:47] LABS: Glucose - Point of Care 216 mg/dl (70-99)
--- NOTE | 2023-09-24 13:33 | CM ---
Insurance information faxed to admissions at [facility] and updated notes, per physician patient is not stable for discharge today, spouse and son are aware, plan is for transfer to [facility] by w/c van when stable.
Plan; Skilled placement at [facility] when stable.
[2023-09-24 15:55] VITALS: BP 127/67
[2023-09-24 16:35] LABS: Glucose - Point of Care 182 mg/dl (70-99)
--- NOTE | 2023-09-24 16:52 | PN.CDI ---
CDI
- -
CDI:
Physician Documentation Request
Admit Date: 09/20/23 14:29
Dear Doctor Do,
Please review the following and provide your response in the progress notes.
Clinical Indicators:
Pt admitted with acute Urinary retention /BPH and CASEY /UTI ruled out
Tmax 101.4, WBC 14.9,13.3
Please clarify which most accurately describes the patient:
SIRS due to a non-infectious source with Acute Organ Dysfunction /CASEY
CASEY only
Other
Unable to determine
Use of terms such as suspected, likely, concern for, or probable (associated with a specific diagnosis that is being evaluated, monitored, or treated as if it exists) are acceptable and can be coded in the inpatient setting, when documented at the
time of discharge.
Thank you,
Alison Sanderson RN
CDI Specialist
Melvin Text
Please use your independent medical judgment in providing your response.
[2023-09-24] MEDS: NOVOLOG FLEXPEN-MODERATE RESISTANCE 1 UNITS SC (18:05)
[2023-09-24 21:02] LABS: Glucose - Point of Care 176 mg/dl (70-99)
[2023-09-24] MEDS: LIPITOR 40 MG PO (21:25)
--- NOTE | 2023-09-24 22:00 | PTCARENOTE ---
Pt's bladder scan result was 665 mL. Pt prompted to void and urinated in bathroom. PVR bladder scan result was 471 mL. Pt reports that he 'doesn't feel like he has to go' when asked if he can urinate again. This RN performed an intermittent
straight cath and output from straight cath was 475 mL. [place] [employer] Nahomi Garcia notified of findings, no new orders at this time. Will continue to monitor urine output and bladder scan per retention algorithm.
[2023-09-24 23:00] VITALS: BP 169/75
[2023-09-25 05:26] VITALS: BMI 22.0
[2023-09-25 07:03] LABS: Hematocrit 35.3 % (39.0-52.0); Hemoglobin 11.6 g/dL (13.0-18.0); Mean Corp Hgb Conc. 32.9 g/dL (33.0-37.0); Mean Corpuscular Hgb 29.4 pg (27.0-31.0); Mean Corpuscular Volume 89.6 fL (80.0-94.0); Mean Platelet Volume 10.6 fL (7.4-10.4); Platelet Count 236 10^3/uL (130-400); Red Blood Cell Count 3.94 10^6/uL (4.70-6.10); Red Cell Dist. Width 13.4 % (11.5-14.5); White Blood Cell Count 11.3 10^3/uL (4.8-10.8)
[2023-09-25 07:30] VITALS: BP 152/74
--- NOTE | 2023-09-25 07:31 | W.PN.HOSP.TC ---
Addendum entered and electronically signed by Thomas Pascual MD 09/25/23 16:47:
Patient had SIRS with Acute Organ Dysfunction/CASEY
Original Note:
Today's Communication/Plan
-
Discharge to senior living with Tavarez
Assessment / Plan
Assessment / Plan
#Acute urinary retention
#BPH
Tavarez inserted in the ED 09/20, started on Flomax
Continue proscar, RBUS negative for hydronephrosis, does show left renal cyst and right renal cyst
Tavarez removed 09/23, patient required straight cath overnight on morning of 09/25
Insert Tavarez 09/25, discharge to short-term rehab with Tavarez
Follow-up with urology in the office for void trial and further workup
#UTI ruled out
Urine culture negative, stopped Rocephin
#Acute kidney injury
#SIRS�
Due to urinary retention
Creatinine bumped from 1.0-1.5 after removal of Tavarez
Reinsert Tavarez as above
Creatinine 1.3, was 1.5, tavarez removed 09/23, was 1.0, was 1.2, was 1.5 upon admission
#Uncontrolled type 2 diabetes
Hemoglobin A1c 12.8
He is only on metformin at home
Patient has dementia, is not comfortable giving insulin
Changed from subcu insulin to Januvia Farxiga as per diabetes nurse practitioner
Resume metformin upon discharge
Coronary Artery Disease s/p Stent in December 2022 (unknown hospital)
-Continue aspirin and Plavix
-Patient is maintained on amiodarone though the exact reason is unknown
Essential Hypertension
-Continue metoprolol
Hyperlipidemia
-Continue atorvastatin
Alzheimer's Dementia
-Monitor for mood/behavior changes
DVT proph: SCDs
Code Status:� DNR
Updated on phone 09/25
Physical Exam
General: Elderly, no acute distress
HEENT: Normocephalic, Atraumatic, EOMI, MMM
Respiratory: Clear to Auscultation bilaterally
Cardiac: Normal S1/S2, Regular Rate and Rhythm
GI: Soft, Nontender, Nondistended, Normal Bowel Sounds
: +tavarez
Extremities: No Clubbing, Cyanosis, or Edema
Neuro: Pleasantly confused
Anticipated Discharge: Today
Subjective/Interval History
-
Date of Service: September 25, 2023
Patient is pleasantly confused. He continues to have urinary retention overnight, requiring straight cath.
Objective Data
-
Labs:
Laboratory Results
09/25/23
06:36
WBC 11.3 H
Hgb 11.6 L
Hct 35.3 L
Plt Count 236
Sodium Pending
Potassium Pending
Chloride Pending
Carbon Dioxide Pending
BUN Pending
Creatinine Pending
Glucose Pending
Calcium Pending
Vital Signs:
Vital Signs
Temp Pulse Resp BP Pulse Ox
99.5 F 73 16 169/75 96
09/24/23 23:00 09/24/23 23:00 09/24/23 23:00 09/24/23 23:00 09/24/23 23:00
I&O
09/24/23 09/25/23 09/26/23
06:59 06:59 06:59
Intake Total 840 / 840 2470 / 2470
Output Total 650 / 650 1175 / 1175
Balance 190 / 190 1295 / 1295
[2023-09-25 07:33] LABS: Glucose - Point of Care 168 mg/dl (70-99)
[2023-09-25 07:42] LABS: Blood Urea Nitrogen 22 mg/dl (9-20); Calcium 8.6 mg/dl (8.4-10.2); Carbon Dioxide 25 mmol/L (22-30); Chloride 100 mmol/L (98-107); Estimated Creatinine Clearance 43 ml/min; Glucose 166 mg/dl (70-99); Potassium 3.8 mmol/L (3.5-5.1); Sodium 134 mmol/L (135-145); eGFR 53.84
--- NOTE | 2023-09-25 08:31 | PN.DE.MGMTRT ---
Insulin Management
- -
09/21/2023: Diabetes management Consult
83 year old male admitted with bladder outlet obstruction with suspected UTI.
PMH includes: HTN, HLD, BPH, Dementia and DM-II, A1C 12.8%. Pt is pleasantly confused, unable to interview due to cognitive impairment, no family at bedside. 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
Glucose was 457 on admission, Cr 1.5-->1.2, eGFR 59.26 today.
Current diabetes regimen includes: Lantus 15 units (1st dose scheduled for tonight @ HS), NovoLog 5 units AC and low corrective
Glucose has remained consistently elevated, premeal 200 to 300's with FBG of 233 this AM.
Will increase AC NovoLog from 5 units to 7 units and change to moderate corrective.
Resume Metformin at increased dose of 1000 mg BID, 1st dose at 1700 with dinner.
Cont Lantus 15 units dose that has been ordered for tonight, will reassess in AM and adjust insulin regimen as necessary.
09/22/2023 Diabetes Management Follow up
NovoLog increased from 5 to 7 units, first dose with dinner. HS glucose 154. Did require 5 units corrective insulin. Will increase AC NovoLog to 10 units.. Lantus 15 units started @ HS last night. Fasting glucose not yet reported, will assess
to determine in adjustment needed.
I spoke with patients , she does not want to give insulin injections but she would think about it and let me know.
09/23/2023 Diabetes Management Follow up
Patient glucose trended down to 66 @ HS. Patient did not receive Lantus. After speaking with , she indicated she did not want to give him injections, will try oral medication. Metformin has been resumed at 1000 BID, will add Farxiga 10 mg
daily with Januvia 100 mg. Patient is receiving Plavix so Meglitinides are contraindicated. Will continue corrective insulin.
09/24/2023 Diabetes Management Follow up
After lengthy discussion Patients does not want to administer insulin. Yesterday patient was transitioned from insulin regimen to Farxiga 10 mg daily and Januvia 100 mg daily (due to age sulfonylureas not an option). Glucose range 166 to 205.
Will allow for slightly elevated glucose due to current situation.
09/25/2022: Diabetes Management F/U:
Glucose in acceptable range, FBG 166 this AM, premeal 168 to 182
Will make no changes to current regimen: Metformin 1000mg BID, Farxiga 10 mg daily and Januvia 100 mg.
Pt stable fir d/c from diabetes standpoint
Diabetes History
- -
Type of Diabetes: 2
Pre-Admission Diabetes Regimen
09/25/23
06:36
Creatinine 1.3
Lab Results
Hemoglobin A1c 12.8 % (4.0-5.6) H 09/21/23 05:54
Insulin Pump Settings
IP Diabetes Regimen
09/24/23 09/24/23 09/24/23
12:46 16:32 21:01
Glucose
POC Glucose 216 H 182 H 176 H
09/25/23 09/25/23
06:36 07:24
Glucose 166 H
POC Glucose 168 H
Meal type: Lunch
Meal type: Breakfast
Amount consumed: 100%
Amount consumed: 100%
Patient Education
[2023-09-25] MEDS: NOVOLOG FLEXPEN-MODERATE RESISTANCE 1 UNITS SC (08:52)
[2023-09-25] MEDS: JANUVIA 100 MG PO (08:53)
[2023-09-25] MEDS: ASPIR LOW (ENTERIC COATED) 81 MG PO (08:53)
[2023-09-25] MEDS: PROSCAR 5 MG PO (08:53)
[2023-09-25] MEDS: PACERONE 200 MG PO (08:53)
[2023-09-25] MEDS: FLOMAX 0.400000000000000022 MG PO (08:53)
[2023-09-25] MEDS: FARXIGA 10 MG PO (08:54)
[2023-09-25] MEDS: PLAVIX 75 MG PO (08:54)
[2023-09-25] MEDS: TOPROL XL 100 MG PO (08:54)
--- NOTE | 2023-09-25 11:06 | W.DCSUMMARY ---
Discharge Summary
Discharge Data
Date of Admission: 09/20/23
Date of Discharge: 09/25/23
-
Pending Results: No
Hospital Course
Discharge diagnosis:
Acute urinary retention requiring Cintron
Benign prostatic hyperplasia
Systemic inflammatory response syndrome with organ dysfunction/acute kidney injury
Urinary tract infection ruled out
Uncontrolled type 2 diabetes
Coronary artery disease status post stent placement in December 2022
Essential hypertension
Hyperlipidemia
Alzheimer's dementia
Head CT:
No acute intracranial abnormalities.
Findings compatible with diffuse cortical atrophy with nonspecific white matter changes as described above.
C spine CT:
Degenerative changes.
No findings to suggest recent cervical spine fracture.
Renal Bladder US:
Small simple appearing left renal cyst and tiny likely simple subcentimeter right renal cyst.
Cannot evaluate urinary bladder, empty, containing Cintron catheter.
Hospital course:
83-year-old male with a past medical history of HTN, HLD, DM-II, BPH and Dementia who presented with mechanical falls and weakness. Head and neck CT were negative.
Patient was found to have acute urinary retention secondary to BPH. He had a Cintron inserted on the day of admission. He was started on Flomax, and continued on finasteride. Renal bladder ultrasound was negative for hydronephrosis.
Patient initially received antibiotics for possible urinary tract infection. He was febrile as well. Urine cultures were negative, and antibiotics were discontinued. His fever resolved.
Patient had acute kidney injury, secondary to obstructive uropathy. His creatinine upon admission was 1.5, improved to 1.0 after several days with his Cintron.
Patient had his Cintron removed on 09/23/2023. He failed his void trial. Cintron was reinserted on 09/25/2023. He will be discharged with a Cintron.
Patient also had uncontrolled type 2 diabetes, hemoglobin A1c was 12.8. He is only on metformin at home. He initially received subcutaneous insulin. Patient's cares for him at home, and she is not comfortable administering his insulin. He
has dementia. Patient was seen in conjunction with the diabetes nurse practitioner. He was transitioned to Januvia, Farxiga, and his metformin was increased to 1000 mg twice a day.
Patient's multiple medical conditions have been optimized. He is medically stable for discharge to short-term rehab. He needs to follow-up with his usual urologist in the office in 1 week for void trial, as well as his family doctor in 1 week.
Disposition: Short-term rehab
Discharge planning: Required 40 minutes
Discharge Plan
-
Patient Disposition: Custodial/SNF
Discharge Diagnosis/Procedures: Acute urinary retention requiring Cintron placement, benign prostatic hypertrophy, acute kidney injury, urinary tract infection ruled out, dementia, hypertension
Condition: Fair
Diet: Diabetic, Carb Controlled
Activity: As tolerated
Driving Restrictions: No driving
Activity Restrictions/Additional Instructions:
You have been discharged with a Cintron urine catheter because of urinary retention.
Please follow-up with your usual urologist in the office in 1 week for void trial and further evaluation.
If you do not been remember the name of your usual urologist, you can see Dr. Lee.
Follow-up with your primary care doctor 1 week.
Referrals:
Braydon Lee MD [Active] - in one week
Kenya Mariee MD [Family Provider] - in one week
Prescriptions:
New
metoprolol succinate 100 mg Tablet Extended Release 24 Hr
100 mg PO DAILY Qty: 0 0RF
tamsulosin 0.4 mg Capsule
0.4 mg PO DAILY Qty: 0 0RF
metformin 1,000 mg Tablet
1,000 mg PO BID@0800,1700 Qty: 0 0RF
Januvia 100 mg Tablet
100 mg PO DAILY Qty: 0 0RF
dapagliflozin propanediol [Farxiga] 10 mg Tablet
10 mg PO DAILY Qty: 0 0RF
Continued
atorvastatin [Lipitor] 40 mg Tablet
40 mg PO HS
amiodarone 200 mg Tablet
200 mg PO DAILY
clopidogrel [Plavix] 75 mg Tablet
75 mg PO DAILY
aspirin 81 mg Tablet,Delayed Release (Dr/Ec)
81 mg PO DAILY
acetaminophen [Tylenol] 325 mg Tablet
650 mg PO Q4HPRN PRN (Reason: mild pain)
cyanocobalamin (vitamin B-12) 1,000 mcg Tablet
1,000 mcg PO DAILY
finasteride 5 mg Tablet
5 mg PO DAILY
Discontinued
metformin 500 mg Tablet
500 mg PO BID
metoprolol succinate [Toprol XL] 200 mg Tablet Extended Release 24 Hr
100 mg PO DAILY
Discharge Orders:
Discharge Patient (As Directed); Ordered 09/25/23
Ordered By: Thomas Pascual
[2023-09-25 11:58] LABS: Glucose - Point of Care 228 mg/dl (70-99)
--- NOTE | 2023-09-25 12:08 | CM ---
Addendum entered by Cris Og 09/25/23 13:58:
Patient has a 4:30pm to [facility] today.
Original Note:
Patient has been approved and accepted at [facility] today. Per transport company patient will need to go by ambulance. COVID test is pending.
[facility]
Report [phone]
[2023-09-25 12:29] LABS: COVID-19 Antigen Negative (Negative)
[2023-09-25] MEDS: NOVOLOG FLEXPEN-MODERATE RESISTANCE 3 UNITS SC (12:36)
[2023-09-25] MEDS: NSS 1000 IV (12:37)
[2023-09-25 15:00] VITALS: BP 187/81
== END 2023-09-25 16:51 | DRG 725 ==
LOC: 4 WEST ACU 14:29
PROVIDERS: Emergency Medicine; Physician Assistant Medical; ADMITTING PHYSICIAN Internal Medicine; ATTENDING PHYSICIAN Family Medicine; EMERGENCY PHYSICIAN Emergency Medicine; FAMILY PHYSICIAN Family Medicine
DX: N40.1 Benign prostatic hyperplasia with lower urinary tract symptoms (principal); R65.11 Systemic inflammatory response syndrome (SIRS) of non-infectious origin with acute organ dysfunction; N17.9 Acute kidney failure, unspecified; N13.8 Other obstructive and reflux uropathy; R33.8 Other retention of urine; I10 Essential (primary) hypertension; E78.00 Pure hypercholesterolemia, unspecified; E11.65 Type 2 diabetes mellitus with hyperglycemia; I25.10 Atherosclerotic heart disease of native coronary artery without angina pectoris; Z95.5 Presence of coronary angioplasty implant and graft; Z66 Do not resuscitate; G30.9 Alzheimer's disease, unspecified; F02.80 Dementia in other diseases classified elsewhere, unspecified severity, without behavioral disturbance, psychotic disturbance, mood disturbance, and anxiety; Z11.52 Encounter for screening for COVID-19
CPT/HCPCS: 51702; 51798; 70450; 72125; 76770; 80048; 80053; 81003; 81015; 82962; 83036; 83735; 84100; 85025; 85027; 85610; 85730; 86850; 86900; 86901; 87086; 87811; 93005; 96360; 97110; 97116; 97162; 97166; 99285

== ENCOUNTER 2023-10-26 16:10 | Emergency (ER) | payer BC, SELFPAY ==
[2023-10-26 16:14] VITALS: BP 125/54
[2023-10-26 16:42] LABS: % Basophils 0.2 % (0-2); % Eosinophils 0.1 % (0-6); % Immature Granulocytes 0.4 % (0-0.5); % Lymphocytes 3.1 % (20.5-51.1); % Monocytes 7.6 % (1.7-9.3); % Neutrophils 88.6 % (42.2-75.2); Absolute Immature Granulocytes 0.1 10^3/uL (0-0.05); Absolute Lymphocytes 0.5 10^3/uL (1.2-3.4); Absolute Monocytes 1.1 10^3/uL (0.1-0.6); Absolute Neutrophils 13.1 10^3/uL (1.4-6.5); Hematocrit 38.9 % (39.0-52.0); Hemoglobin 12.5 g/dL (13.0-18.0); Mean Corp Hgb Conc. 32.1 g/dL (33.0-37.0); Mean Corpuscular Hgb 29.3 pg (27.0-31.0); Mean Corpuscular Volume 91.1 fL (80.0-94.0); Mean Platelet Volume 9.6 fL (7.4-10.4); Nucleated Red Blood Cells % 0 % (-); Platelet Count 300 10^3/uL (130-400); Red Blood Cell Count 4.27 10^6/uL (4.70-6.10); Red Cell Dist. Width 14.2 % (11.5-14.5); White Blood Cell Count 14.8 10^3/uL (4.8-10.8)
[2023-10-26 16:47] LABS: COVID-19 Antigen Negative (Negative); Chloride 99 mmol/L (98-107); Potassium 4.1 mmol/L (3.5-5.1); Sodium 135 mmol/L (135-145)
--- NOTE | 2023-10-26 16:48 | ED.GENMED ---
Addendum entered and electronically signed by Dao Kelly PA-C 10/27/23 08:02:
Blood culture shows gram-negative bacilli. Spoke with patient's . Advised to come back here for further evaluation and potential admission for bacteremia
Original Note:
History of Present Illness
General
Chief Complaint: Fever
Source: patient, records and spouse
Exam Limitations: dementia
Time Seen by Provider: 10/26/23 16:36
Nursing documentation reviewed up to this point in time: agreed with
Travel History
Have you had any contact with someone who has COVID-19?: No
Do you have any symptoms of coronavirus? Fever > 100 degrees, chills, cough, shortness of breath, sore throat, loss of taste or smell, muscle aches, or headache?: No
History of Present Illness
History of Present Illness:
83-year-old male with a past medical history of hypertension, hyperlipidemia, CAD, diabetes, significant dementia who presents to the emergency room from home accompanied by his for evaluation of fever. Patient is a very limited historian due
to his dementia. He says that he feels 'fine.' Denies any pain. Denies feeling short of breath. He did have a recent admission here in September for uncontrolled diabetes, fever thought potentially to be secondary to UTI (ultimately urine
cultures were negative and fever resolved, antibiotics discontinued) as well as urinary retention requiring Cintron catheter placement. His is at bedside here provides collateral history: Patient was at the library with her neighbor said to
return home and patient started having some chills. They live in a skilled nursing facility and took him to see the nurse and was told that patient had a fever. He was brought to the emergency room for assessment. He has not had a issues
recently�she has not noticed any coughing, breathing issues, sore throat, runny nose, diarrhea, vomiting or any other issues. Was in his normal state of health until today and in fact has been doing quite well from a functional point of view since
discharge from hospital according to his .
Past History
Past History
ED Past Medical History: HTN, Hypercholesterolemia and NIDDM
ED Past Surgical History: Cardiac (Defibrillator, cardiac stent)
Social History
Tobacco: Non-smoker
Alcohol: None
Personal:
Living: with family
Employment: Retired
Review of Systems
Review of Systems
Unable to obtain full review of systems at this time due to: dementia
All Other Systems: Not applicable
Phy Exam
Physical Exam
Physical Exam:
General: Awake, alert, oriented x1; no acute distress
Head: Normocephalic, atraumatic
Eyes: Conjunctiva normal, pupils equal round and reactive to light bilaterally
Throat: Airway intact, handling secretions
Neck: Trachea midline, supple without meningismus
Lungs: Clear to auscultation bilaterally, no wheezing, rales, rhonchi
Heart: Regular rate and rhythm, no murmurs, gallops, or rubs
Abd: Soft, non distended, nontender
Neuro: Cranial nerves grossly intact, speech fluid
Skin: no rash
Extremities: No edema in extremities, equal pulses in all extremities
Scores
Heart Failure Risk
Heart Failure Risk Score: Not Applicable
Heart Score for Chest Pain Patients
STEMI patient?: Not applicable
Withdrawal Assessment of Alcohol
Withdrawal Assessment Completed?: Not applicable
Course
Orders/Labs/Results
Orders:
Orders
10/26/23 16:25
COVID-19 Antigen Urgent
Source: Nasal Swab
Complete Blood Count/With Diff Urgent
Comprehensive Metabolic Panel Urgent
Lactic Acid Urgent
Blood Culture Urgent
JESSICA Source: Blood/Venous
Specimen Description:
Influenza A+B Rapid Molecular Urgent
JESSICA Source: Nasal Swab
Specimen Description:
10/26/23 16:43
CR Chest - 2 Views Urgent
Comment:
Reason For Exam: fever
10/26/23 17:02
Complete Blood Count/With Diff Urgent
Urinalysis Reflex To Culture Urgent
Date Specimen was Collected: 10/26/23
Time Specimen was Collected: 16:46
Urine Microscopic Reflex Cult Urgent
Urine Culture Urgent
JESSICA Source: U
Specimen Description:
Date Specimen was Collected: 10/26/23
Time Specimen was Collected: 16:46
10/26/23 20:07
Straight cath- Treatment ONCE
10/26/23 20:45
CefTRIAXone [Rocephin] 1,000 mg IV NOW STA
10/26/23 20:56
Lactate Level [Lactic Acid] Urgent
Abnormal Lab Results
10/26/23 10/26/23
16:25 17:02
WBC 14.8 H 10^3/uL 14.5 H 10^3/uL
(4.8-10.8) (4.8-10.8)
RBC 4.27 L 10^6/uL 3.96 L 10^6/uL
(4.70-6.10) (4.70-6.10)
Hgb 12.5 L g/dL 11.6 L g/dL
(13.0-18.0) (13.0-18.0)
Hct 38.9 L % 35.7 L %
(39.0-52.0) (39.0-52.0)
MCHC 32.1 L g/dL 32.5 L g/dL
(33.0-37.0) (33.0-37.0)
Abs Immat Gran (auto) 0.1 H 10^3/uL 0.1 H 10^3/uL
(0-0.05) (0-0.05)
Absolute Neuts (auto) 13.1 H 10^3/uL 12.6 H 10^3/uL
(1.4-6.5) (1.4-6.5)
Absolute Lymphs (auto) 0.5 L 10^3/uL 0.6 L 10^3/uL
(1.2-3.4) (1.2-3.4)
Absolute Monos (auto) 1.1 H 10^3/uL 1.2 H 10^3/uL
(0.1-0.6) (0.1-0.6)
Immature Gran % 0.6 H %
(0-0.5)
Neutrophils % 88.6 H % 86.8 H %
(42.2-75.2) (42.2-75.2)
Lymphocytes % 3.1 L % 4.1 L %
(20.5-51.1) (20.5-51.1)
Creatinine 1.4 H mg/dL
(0.7-1.3)
Glucose 241 H mg/dl
(70-99)
Lactic Acid 3.2 H mmol/L
(0.7-2.0)
Urine Ketones Trace A
(Negative)
Ur Occult Blood Reflex 1+ A
(Negative)
Leukocyte Esterase Rfl 1+ A
(Negative)
Urine RBC 3-6 A /HPF
(0-2)
Urine WBC (Reflex) 11-15 A /HPF
(0-5)
Urine Bacteria (Reflex) Moderate A
(Negative)
Urine Glucose 3+ A
(Negative)
10/26/23 17:02
10/26/23 16:25
Vital Signs
Initial and Last Documented VS:
Initial Vital Signs
Temp Pulse Resp BP Pulse Ox
37.9 C 89 18 125/54 96
10/26/23 16:14 10/26/23 16:14 10/26/23 16:14 10/26/23 16:14 10/26/23 16:14
Last Documented Vital Signs
Temp Pulse Resp BP Pulse Ox
37.9 C 89 18 122/48 99
10/26/23 16:14 10/26/23 16:14 10/26/23 16:14 10/26/23 21:00 10/26/23 21:00
MDM/Problems Addressed
Differential Diagnosis Includes:
Viral syndrome including COVID or influenza, pneumonia, UTI
MDM/Problems Addressed:
83-year-old male presents for evaluation of fever and chills this afternoon. Borderline temperature here of 37.9 �C, otherwise normal vitals. Physical exam as above. Plan to place an IV check labs including CBC and CMP; will check viral swabs.
Will check urinalysis and chest x-ray. Will monitor closely reassess after the above.
Labs reviewed: CBC does show leukocytosis to 14.5 no other clinically significant abnormalities. Creatinine 1.4. Which is baseline. Glucose was slightly elevated but no signs of DKA. He did have initial lactate elevation which I suspect may have
been false elevation with labs sitting out; will repeat. His urinalysis is positive for infection with bacteria and pyuria suspect this is likely cause of his symptoms. He has no clear signs of sepsis at this point in time he does have a
leukocytosis he has been afebrile here with normal blood pressure, normal pulse, normal respiratory rate. Family feels that he is at his baseline mentation. I long discussion with the family is history of dementia concern for delirium and risks
associated with unnecessary hospitalization. Will plan to treat with some IV antibiotics and discharge on oral antibiotic to start pending repeat lactate. Family is very happy with this plan.
Lactate normal on recheck, vital signs normal will plan to discharge for trial of oral antibiotics. Family very comfortable with this. Spoke about return precautions all questions answered.
Chronic conditions affecting care:
Dementia
*Radiology
Radiology exam reviewed: preliminary read by ED provider and radiology read reviewed
*Pulse Oximetry
Patient hypoxic: no
*Critical Care Note
Total Time (30-74mins, 75-104mins- exclusive of procedures): Not Applicable
Data Reviewed
Review of Other/Old Records Reveals: Labs, Records and Discharge Summary
Source: patient, records and spouse
Patient Management
Social determinants of health affecting care: Strong social support
Escalation/DeEscalation of care consider admission/obs:
Considered admission�discussed risk and benefits with family and opted for discharge with close outpatient follow-up
ED Attending Note
-
Portions of this chart may have been created with voice recognition software.� Occasional wrong word or��sound alike� substitutions may have occurred due to the inherent limitations of voice recognition software.
Discharge Plan
Departure
Patient Disposition: Home (Routine Discharge)
Date of Disposition: 10/26/23
Time of Disposition: 21:41
Patient with high blood pressure during this ER visit?: No
Discharge Problem:
Acute UTI
Instructions: Urinary Tract Infection, Adult (DC), Fever, Adult (DC)
Prescriptions:
New
cefdinir 300 mg capsule
300 mg PO BID 7 Days Qty: 14 0RF
No Action
atorvastatin [Lipitor] 40 mg Tablet
40 mg PO HS
amiodarone 200 mg Tablet
200 mg PO DAILY
clopidogrel [Plavix] 75 mg Tablet
75 mg PO DAILY
aspirin 81 mg Tablet,Delayed Release (Dr/Ec)
81 mg PO DAILY
acetaminophen [Tylenol] 325 mg Tablet
650 mg PO Q4HPRN PRN (Reason: mild pain)
cyanocobalamin (vitamin B-12) 1,000 mcg Tablet
1,000 mcg PO DAILY
finasteride 5 mg Tablet
5 mg PO DAILY
metoprolol succinate 100 mg Tablet Extended Release 24 Hr
100 mg PO DAILY Qty: 0 0RF
tamsulosin 0.4 mg Capsule
0.4 mg PO DAILY Qty: 0 0RF
metformin 1,000 mg Tablet
1,000 mg PO BID@0800,1700 Qty: 0 0RF
Januvia 100 mg Tablet
100 mg PO DAILY Qty: 0 0RF
dapagliflozin propanediol [Farxiga] 10 mg Tablet
10 mg PO DAILY Qty: 0 0RF
Referrals:
Kenya Mariee MD [Family Provider] - Follow up in 2-3 days
Activity Restrictions/Additional Instructions:
Thank you for visiting the Emergency Department at [facility].
1. Please schedule a follow up appointment as directed. Call first thing tomorrow morning to make an appointment.
2. If indicated, please take your medications as instructed and indicated on discharge paperwork.
3. If any of your symptoms do not improve, or persist, or become more severe within 6-12 hours, please return to the emergency department for further care.
4. Please return to the emergency department if you develop a headache, neck pain/stiffness, fever greater than 100.4F, chest pain, shortness of breath, persistent nausea, vomiting, slurred speech, difficulty walking, numbness/tingling, weakness,
signs of infection or any other symptoms that are worrisome to you.
Please call [phone] if you have any questions.
Interventions
Interventions:
*Risk Screen - Suicide Last Done: 10/26/23 16:14
*General Assessment Last Done: 10/26/23 16:14
*Neglect/Abuse Screening Last Done: 10/26/23 16:14
*ED COVID-19 Vaccine History Last Done: 10/26/23 16:14
ED- Neurological Assessment Last Done: 10/26/23 17:17
ED-Skin Assessment Last Done: 10/26/23 17:17
[2023-10-26 16:55] LABS: ALT (SGPT) 18 U/L (0-50); AST (SGOT) 24 U/L (17-59); Alkaline Phosphatase 86 U/L (38-126); Blood Urea Nitrogen 20 mg/dl (9-20); Calcium 8.6 mg/dl (8.4-10.2); Carbon Dioxide 22 mmol/L (22-30); Glucose 241 mg/dl (70-99); Total Bilirubin 0.8 mg/dl (0.2-1.3); Total Protein 6.5 g/dl (6.3-8.2); eGFR 49.25
[2023-10-26 16:56] LABS: Lactic Acid 3.2 mmol/L (0.7-2.0)
[2023-10-26 17:10] VITALS: BP 145/44
[2023-10-26 17:15] LABS: % Basophils 0.2 % (0-2); % Immature Granulocytes 0.6 % (0-0.5); % Lymphocytes 4.1 % (20.5-51.1); % Monocytes 8.3 % (1.7-9.3); % Neutrophils 86.8 % (42.2-75.2); Absolute Immature Granulocytes 0.1 10^3/uL (0-0.05); Absolute Lymphocytes 0.6 10^3/uL (1.2-3.4); Absolute Monocytes 1.2 10^3/uL (0.1-0.6); Absolute Neutrophils 12.6 10^3/uL (1.4-6.5); Hematocrit 35.7 % (39.0-52.0); Hemoglobin 11.6 g/dL (13.0-18.0); Mean Corp Hgb Conc. 32.5 g/dL (33.0-37.0); Mean Corpuscular Hgb 29.3 pg (27.0-31.0); Mean Corpuscular Volume 90.2 fL (80.0-94.0); Mean Platelet Volume 9.7 fL (7.4-10.4); Nucleated Red Blood Cells % 0 % (-); Platelet Count 274 10^3/uL (130-400); Red Blood Cell Count 3.96 10^6/uL (4.70-6.10); White Blood Cell Count 14.5 10^3/uL (4.8-10.8)
[2023-10-26 18:00] VITALS: BP 116/55
[2023-10-26 19:25] VITALS: BP 118/49
[2023-10-26 20:00] VITALS: BP 118/48
[2023-10-26 20:18] LABS: Urine Albumin Trace (Neg - Trace); Urine Bilirubin Negative (Negative); Urine Character Clear (Clear); Urine Color Yellow; Urine Glucose 3+ (Negative); Urine Ketone Trace (Negative); Urine Leukocyte 1+ (Negative); Urine Nitrite Negative (Negative); Urine Occult Blood 1+ (Negative); Urine Urobilinogen Negative (Neg - 1+)
[2023-10-26 20:26] LABS: Urine Bacteria Moderate (Negative)
[2023-10-26 21:00] VITALS: BP 122/48
[2023-10-26] MEDS: ROCEPHIN 1000 MG IV (21:09)
[2023-10-26 21:14] LABS: Lactic Acid 0.8 mmol/L (0.7-2.0)
== END 2023-10-26 22:13 | disposition home or self-care (01) ==
LOC: EMR 16:10
PROVIDERS: Emergency Medicine; EMERGENCY PHYSICIAN Emergency Medicine; FAMILY PHYSICIAN Family Medicine
DX: N39.0 Urinary tract infection, site not specified (principal); F03.90 Unspecified dementia, unspecified severity, without behavioral disturbance, psychotic disturbance, mood disturbance, and anxiety; Z11.52 Encounter for screening for COVID-19
CPT/HCPCS: 99284; 96374; 71046; 80053; 81003; 81015; 83605; 85025; 87040; 87077; 87086; 87149; 87186; 87205; 87502; 87811

== ENCOUNTER 2023-10-27 11:33 | Inpatient (IN) | payer MEDICARE, BC, SELFPAY ==
[2023-10-27] VITALS (8 sets, daily range): BP systolic 108–155; BP diastolic 45–64; BMI 19.7
--- NOTE | 2023-10-27 10:13 | ED.GENMED ---
History of Present Illness
General
Chief Complaint: Abnormal Lab Value
Source: patient, records and spouse
Exam Limitations: none
Time Seen by Provider: 10/27/23 10:00
Nursing documentation reviewed up to this point in time: agreed with
Travel History
Have you had any contact with someone who has COVID-19?: No
Do you have any symptoms of coronavirus? Fever > 100 degrees, chills, cough, shortness of breath, sore throat, loss of taste or smell, muscle aches, or headache?: No
History of Present Illness
History of Present Illness:
83-year-old male presents emergency department complaining of fever yesterday. He was diagnosed with a UTI. He was stable and discharged on cefdinir. His urine cultures came back positive for gram-negative bacilli and he was called back to the
emergency department.
Past History
Past History
ED Past Medical History: HTN, Hypercholesterolemia and NIDDM
ED Past Surgical History: Cardiac (Defibrillator, cardiac stent)
Social History
Tobacco: Non-smoker
Alcohol: None
Personal:
Living: with family
Employment: Retired
Review of Systems
Review of Systems
Allergies reviewed?: Yes
All Other Systems: Not applicable
Constitutional: Reports fever
EENT: Reports no symptoms
Respiratory: Reports no symptoms
Cardiac: Reports no symptoms
ABD/GI: Reports no symptoms
: Reports no symptoms
Musculoskeletal: Reports no symptoms
Skin: Reports no symptoms
Neurological: Reports no symptoms
Endocrine: Reports no symptoms
Hematologic/Lymphatic: Reports no symptoms
Psychiatric: Reports no symptoms
Phy Exam
Physical Exam
Physical Exam:
Physical Exam
General: Afebrile, 113/45
Neck: supple. no meningeal signs. normal posterior pharynx
Heart: s1/s2 regular rate and rhythm, no murmur. equal radial
pulses.
HEENT: Pupils equal round reactive to light, EOMI
Lungs: no acute respiratory distress. clear bilaterally
Abdomen: normal bowel sounds. not tender. no CVAT
Neuro: alert and oriented to person. no focal neurological deficits cranial nerves II through XII intact
Skin: no rash
Psychiatric: well kept. interactive and cooperative
Extremities: no edema. no calf tenderness. negative homans. good distal pulses
Course
Orders/Labs/Results
Orders:
Orders
10/27/23 10:01
Cardiac Monitoring- Treatment ONCE
IV Insert/Care/Rem.- Treatment PRN
Complete Blood Count/With Diff Urgent
Comprehensive Metabolic Panel Urgent
Urinalysis Reflex To Culture Urgent
10/27/23 10:15
Lactic Acid Q4H
Comment: CANCEL 2nd LACTIC ACID IF 1st LACTIC ACID IS LESS THAN 2
Blood Culture Q30M
JESSICA Source: Blood/Venous
Specimen Description:
10/27/23 10:45
Blood Culture Q30M
JESSICA Source: Blood/Venous
Specimen Description:
10/27/23 14:15
Lactic Acid Q4H
Comment: CANCEL 2nd LACTIC ACID IF 1st LACTIC ACID IS LESS THAN 2
Vital Signs
Initial and Last Documented VS:
Initial Vital Signs
Temp Pulse Resp BP Pulse Ox
97.8 F 78 18 113/45 97
10/27/23 09:50 10/27/23 09:50 10/27/23 09:50 10/27/23 09:50 10/27/23 09:50
Last Documented Vital Signs
Temp Pulse Resp BP Pulse Ox
97.8 F 78 18 113/45 97
10/27/23 09:50 10/27/23 09:50 10/27/23 09:50 10/27/23 09:50 10/27/23 09:50
MDM/Problems Addressed
Differential Diagnosis Includes:
UTI, bacteremia
MDM/Problems Addressed:
83-year-old male with UTI and gram-negative bacteremia. IV cefepime ordered. Admit to hospitalist.
Chronic conditions affecting care: DM, HTN, CAD and Neurological disorder (Dementia)
Acute Exacerbation and/or Progression of Chronic Illness: DM, HTN and Neurological disorder (Dementia)
*Pulse Oximetry
Patient hypoxic: no
*EKG
Interpreted by ED Provider?: NA
*Ball Thread Machine Tender Interpretation
Rate: Ball Thread Machine Tender- N/A
*Critical Care Note
Total Time (30-74mins, 75-104mins- exclusive of procedures): Not Applicable
Data Reviewed
Review of Other/Old Records Reveals: Labs
Source: records (Gram-negative bacilli on blood culture)
Patient Management
Social determinants of health affecting care: Living situation
Discussion with other providers: Hospitalist
Escalation/DeEscalation of care consider admission/obs:
Admit indicated for bacteremia
ED Attending Note
-
Portions of this chart may have been created with voice recognition software.� Occasional wrong word or��sound alike� substitutions may have occurred due to the inherent limitations of voice recognition software.
Discharge Plan
Departure
Patient Disposition: Admit
Date of Disposition: 10/27/23
Time of Disposition: 10:21
Admit to: Med/Surg
Presentation/result/management discussed w/ accepting MD/DO: Hospitalist
Patient with high blood pressure during this ER visit?: No
Condition: Good
Discharge Problem:
Bacteremia due to Gram-negative bacteria, UTI (urinary tract infection)
Prescriptions:
No Action
atorvastatin [Lipitor] 40 mg Tablet
40 mg PO HS
amiodarone 200 mg Tablet
200 mg PO DAILY
clopidogrel [Plavix] 75 mg Tablet
75 mg PO DAILY
aspirin 81 mg Tablet,Delayed Release (Dr/Ec)
81 mg PO DAILY
acetaminophen [Tylenol] 325 mg Tablet
650 mg PO Q4HPRN PRN (Reason: mild pain)
cyanocobalamin (vitamin B-12) 1,000 mcg Tablet
1,000 mcg PO DAILY
finasteride 5 mg Tablet
5 mg PO DAILY
metoprolol succinate 100 mg Tablet Extended Release 24 Hr
100 mg PO DAILY Qty: 0 0RF
tamsulosin 0.4 mg Capsule
0.4 mg PO DAILY Qty: 0 0RF
metformin 1,000 mg Tablet
1,000 mg PO BID@0800,1700 Qty: 0 0RF
Januvia 100 mg Tablet
100 mg PO DAILY Qty: 0 0RF
dapagliflozin propanediol [Farxiga] 10 mg Tablet
10 mg PO DAILY Qty: 0 0RF
cefdinir 300 mg capsule
300 mg PO BID 7 Days Qty: 14 0RF
[2023-10-27 10:38] LABS: % Basophils 0.2 % (0-2); % Immature Granulocytes 0.5 % (0-0.5); % Lymphocytes 4.7 % (20.5-51.1); % Monocytes 4.4 % (1.7-9.3); % Neutrophils 90.2 % (42.2-75.2); Absolute Immature Granulocytes 0.1 10^3/uL (0-0.05); Absolute Lymphocytes 0.6 10^3/uL (1.2-3.4); Absolute Monocytes 0.6 10^3/uL (0.1-0.6); Absolute Neutrophils 11.2 10^3/uL (1.4-6.5); Hematocrit 36.8 % (39.0-52.0); Hemoglobin 12.1 g/dL (13.0-18.0); Mean Corp Hgb Conc. 32.9 g/dL (33.0-37.0); Mean Corpuscular Hgb 29.4 pg (27.0-31.0); Mean Corpuscular Volume 89.3 fL (80.0-94.0); Mean Platelet Volume 9.8 fL (7.4-10.4); Nucleated Red Blood Cells % 0 % (-); Platelet Count 252 10^3/uL (130-400); Red Blood Cell Count 4.12 10^6/uL (4.70-6.10); Red Cell Dist. Width 14.4 % (11.5-14.5); White Blood Cell Count 12.4 10^3/uL (4.8-10.8)
[2023-10-27 10:52] LABS: Lactic Acid 3.1 mmol/L (0.7-2.0)
[2023-10-27 10:53] LABS: ALT (SGPT) 21 U/L (0-50); AST (SGOT) 27 U/L (17-59); Albumin 3.5 g/dl (3.5-5.0); Alkaline Phosphatase 72 U/L (38-126); Blood Urea Nitrogen 25 mg/dl (9-20); Calcium 8.9 mg/dl (8.4-10.2); Carbon Dioxide 26 mmol/L (22-30); Chloride 100 mmol/L (98-107); Estimated Creatinine Clearance 36 ml/min; Glucose 272 mg/dl (70-99); Potassium 3.9 mmol/L (3.5-5.1); Sodium 137 mmol/L (135-145); Total Bilirubin 0.6 mg/dl (0.2-1.3); eGFR 49.25
[2023-10-27] MEDS: MAXIPIME 2000 MG IV (10:53)
--- NOTE | 2023-10-27 11:15 | HPS.HSE ---
Family Physician
-
Family Physician: Kenya Mariee
Chief Complaint
-
Positive blood cultures
History of Present Illness
83-year-old male called to return to the emergency room today for positive blood cultures that were drawn yesterday.
He was evaluated in the emergency room yesterday and diagnosed with a urinary tract infection and discharged on oral cefdinir. Originally went to the emergency room yesterday for acute onset of fever and confusion noted by his . Also had
chills.
He was admitted to the hospital September 2023 and diagnosed with CASEY and urinary retention, required Cintron catheter on discharge. Transiently treated with antibiotics for presumed UTI at the time but subsequently discontinued when cultures returned
negative.
Required brief stay in skilled section of [facility], subsequently discharged back to his assisted living in [facility].
Medical History
Past Medical History
Past Medical History: Reports Other
Additional Past Medical History:
Alzheimer's dementia
Type 2 diabetes mellitus
Essential hypertension
Hyperlipidemia
CAD -stented December 2022
CKD 3B
BPH
History of urinary retention requiring Cintron catheter
Past Surgical History: Reports Other
Additional Past Surgical History:
ICD placement
Social History
Unable to obtain full social history at this time due to: Dementia
Tobacco: Non-smoker
Alcohol: None
Drug: None
Personal:
Living: With Family
Family History
Family History: Not pertinent
Allergies / Home Medications
Allergies reflects when Allergies were last updated in [facility].
Home Medications with original date entered in [facility]
Allergy/Medication List:
Allergies
Allergy/AdvReac Type Severity Reaction Status Date / Time
aspirin Allergy BLEEDING Verified 10/26/23 16:15
Home Medications
acetaminophen 325 mg tablet (Tylenol) 650 mg PO DAILYPRN PRN fever 09/20/23
amiodarone 200 mg tablet 200 mg PO DAILY Arrhythmia 09/20/23
aspirin 81 mg tablet,delayed release 81 mg PO DAILY Blood Clot Prevention/Tx 09/20/23
atorvastatin 40 mg tablet (Lipitor) 40 mg PO QPM High Cholesterol 09/20/23
clopidogrel 75 mg tablet (Plavix) 75 mg PO DAILY Blood Clot Prevention/Tx 09/20/23
finasteride 5 mg tablet 5 mg PO QPM Urinary Issue 09/20/23
dapagliflozin propanediol 10 mg tablet (Farxiga) 10 mg PO DAILY #0 tabs 09/25/23
cyanocobalamin (vitamin B-12) 2,000 mcg tablet 2,000 mcg PO QPM 10/27/23
metformin 500 mg tablet 500 mg PO BID 10/27/23
metoprolol succinate 100 mg tablet,extended release 24 hr 100 mg PO QPM 10/27/23
saxagliptin 5 mg tablet 5 mg PO QPM 10/27/23
silodosin 4 mg capsule 4 mg PO DAILY 10/27/23
timolol maleate 0.5 % eye drops 1 drp BOTH EYES DAILY 10/27/23
Review of Systems
-
Unable to obtain full review of systems at this time due to: Dementia
History Source: Patient and Family
A 12 point ROS was completed and negative except as noted: Yes
: Denies Dysuria, Frequency or Flank Pain
Physical Exam
Vital Signs
Vital Signs
Temp Pulse Resp BP Pulse Ox
97.8 F 78 18 113/45 97
10/27/23 09:50 10/27/23 09:50 10/27/23 09:50 10/27/23 09:50 10/27/23 09:50
Physical Exam
General: Well Developed, Well Nourished, No Apparent Distress and Comfortable
HEENT: NormoCephalic, Anicteric and Moist mucous membranes
Respiratory: Clear
Cardiac: S1/S2 and Regular Rhythm
GI: Soft, Non Tender and Non Distended
Genito-urinary: Deferred by me and No costovertebral tender
Musculoskeletal: No Clubbing, No Cyanosis and No Edema
Skin: Warm and Dry
Neuro: AO x 3
Hematologic/Lymphatic: No Lymphadenopathy
Psych: Calm
Laboratory Results
-
10/27/23 10:24
10/27/23 10:24
Laboratory Results
Lactic Acid 3.1 mmol/L (0.7-2.0) H 10/27/23 10:24
Total Bilirubin 0.6 mg/dl (0.2-1.3) 10/27/23 10:24
AST 27 U/L (17-59) 10/27/23 10:24
ALT 21 U/L (0-50) 10/27/23 10:24
Alkaline Phosphatase 72 U/L (38-126) 10/27/23 10:24
Impression/Plan
-
E. coli sepsis -admit to [facility]. Hemodynamically stable. Continue IV cefepime. Consult ID. Await culture sensitivity results. Source of sepsis unclear but differential diagnosis includes UTI. No signs or symptoms of prostatitis. Urine
culture pending. Repeat blood cultures pending. Currently denies UTI symptoms.
Lactic acidosis due to sepsis.
DM2 with hyperglycemia -glucose 272 this morning. Recent hemoglobin A1c 12.8% in September. Resume for Farxiga, saxagliptin, metformin. Add low resistance NovoLog scale.
Essential hypertension -stable.
CKD 3B -renal function appears to be at baseline.
CAD -stable.
ICD
Hyperlipidemia -continue Lipitor.
BPH -with prior episode of urinary retention. Check bladder scans.
Alzheimer's dementia
DNR
PT/OT
Family updated at the bedside.
[2023-10-27 13:01] LABS: Urine Albumin Trace (Neg - Trace); Urine Bilirubin Negative (Negative); Urine Character Clear (Clear); Urine Color Yellow; Urine Glucose 3+ (Negative); Urine Ketone Negative (Negative); Urine Leukocyte Negative (Negative); Urine Nitrite Negative (Negative); Urine Occult Blood Negative (Negative); Urine Specific Gravity 1.015 (<1.030); Urine Urobilinogen Negative (Neg - 1+)
--- NOTE | 2023-10-27 15:04 | CM ---
Patient known to [facility].
--- NOTE | 2023-10-27 15:20 | CON.ID ---
Consultation
-
Date/Time Consultation Requested: 10/27/2023, 1408
Date/Time Consultation Performed: 10/27/2023, 1520
Requesting Provider: Dr. Toby Taveras
Performing Provider: Dr. Valencia Ta
Reason for Consultation: UTI/bacteremia
Chief Complaint / Past History
Chief Complaint
positive blood cx
History of Present Illness
History obtained from review of medical records as patient with dementia. He is a 83 year old male with BPH, CAD, ICD who presented to the ED 10/26/23 with sudden chills with fever. T=100.3. WBC 14.8. Urine and blood cx obtained and sent home on
cefdinir. However, blood cx x 1 of 1 yesterday turned positive. ED called him to return to hospital. Repeat blood cx's pending. Ucx pending. He states he is doing well without any problems voiding. No dysuria, urgency or flank pain. Denies
chills.
Past History
Additional Past Medical History:
DM
dementia
CAD s/p stent
ICD placement
HTN
BPH
CKD3b
Allergy History:
aspirin Allergy (Verified 10/26/23 16:15)
BLEEDING
Medications Reviewed: Yes
Current Antibiotics:
cefepime
Social History
Tobacco: Non-Smoker
Alcohol: None
Drug: None
Personal:
Family History
Family History: Not Pertinent
Review of Systems
Review of Systems
General: Negative Change in Appetite
HEENT: Negative Sinus Problems, Headache or Pharyngitis
Cardiovascular: Negative Chest Pain
Respiratory: Negative Dyspnea or Cough
Gasteroenterology: Other (diarrhea); Negative Nausea or Vomiting
Genital / Urological: Negative Dysuria
Skin / Hair / Nails: Negative Rash
Neurological: Negative Headache or Dizziness
All systems: All other systems were reviewed and were negative
Vital Signs
Temp Pulse Resp BP Pulse Ox
97.8 F 68 15 122/51 98
10/27/23 09:50 10/27/23 14:00 10/27/23 14:00 10/27/23 14:00 10/27/23 14:00
Physical Exam
Physical Exam
Constitutional: No Acute Distress and Comfortable
Eyes: Pupils Round and No Conjunctival Hemorrhage
Cardiovascular: Regular Rate, S1/S2 and Other (ICD site without erythema/induration)
Gastrointestinal: Soft, Non Tender, Non Distended and Normal Bowel Sounds
Genito-Urinary: Negative Cintron or CVA Tenderness
Extremities: Negative Edema
Neurological: Awake and Alert
Lab / Diagnostic Study Results
10/27/23 10:24
10/27/23 10:24
Abs Immat Gran (auto) 0.1 10^3/uL (0-0.05) H 10/27/23 10:24
Absolute Neuts (auto) 11.2 10^3/uL (1.4-6.5) H 10/27/23 10:24
Absolute Lymphs (auto) 0.6 10^3/uL (1.2-3.4) L 10/27/23 10:24
Absolute Monos (auto) 0.6 10^3/uL (0.1-0.6) 10/27/23 10:24
Absolute Basos (auto) 0.0 10^3/uL (0-0.2) 10/27/23 10:24
Immature Gran % 0.5 % (0-0.5) 10/27/23 10:24
Neutrophils % 90.2 % (42.2-75.2) H 10/27/23 10:24
Lymphocytes % 4.7 % (20.5-51.1) L 10/27/23 10:24
Monocytes % 4.4 % (1.7-9.3) 10/27/23 10:24
Eosinophils % 0.0 % (0-6) 10/27/23 10:24
Basophils % 0.2 % (0-2) 10/27/23 10:24
Lactic Acid 3.1 mmol/L (0.7-2.0) H 10/27/23 10:24
Microbiology Results
Micro:
10/27/23 10:24 Blood Culture - Pending
Blood/Venous
10/27/23 10:24 Blood Culture - Pending
Blood/Venous
10/26/23 CXR: no pneumonia
Assessment / Plan
# E. coli bacteremia
# Suspect UTI source
# Leukocytosis
-Await Ucx
-Follow repeat blood cx's.
-Narrow cefepime to ceftriaxone
-Trend wbc.
[2023-10-27] MEDS: 0.45%NACL 1000 IV (15:31)
[2023-10-27 16:54] LABS: Glucose - Point of Care 101 mg/dl (70-99)
[2023-10-27] MEDS: NOVOLOG FLEXPEN-LOW RESISTANCE SC ×2 (17:01)
[2023-10-27] MEDS: JANUVIA 100 MG PO (17:02)
[2023-10-27] MEDS: PROSCAR 5 MG PO (17:02)
[2023-10-27] MEDS: LIPITOR 40 MG PO (17:02)
[2023-10-27] MEDS: TOPROL XL 100 MG PO (17:03)
[2023-10-27] MEDS: STERILE WATER FOR INJECTION 10 ML IV (17:03)
[2023-10-27] MEDS: VITAMIN B-12 2000 MCG PO (17:03)
[2023-10-27] MEDS: ROCEPHIN 1000 MG IV (17:03)
[2023-10-27 17:10] LABS: Lactic Acid 1.5 mmol/L (0.7-2.0)
[2023-10-27] MEDS: GLUCOPHAGE 500 MG PO (20:58)
[2023-10-27] MEDS: HEPARIN 5000 UNITS SC (20:58)
[2023-10-27 21:18] LABS: Glucose - Point of Care 144 mg/dl (70-99)
[2023-10-28 07:30] VITALS: BP 132/68
[2023-10-28 07:47] LABS: Glucose - Point of Care 124 mg/dl (70-99)
[2023-10-28 08:01] LABS: % Basophils 0.3 % (0-2); % Eosinophils 1.2 % (0-6); % Immature Granulocytes 0.5 % (0-0.5); % Lymphocytes 13.2 % (20.5-51.1); % Monocytes 11.5 % (1.7-9.3); % Neutrophils 73.3 % (42.2-75.2); Absolute Eosinophils 0.1 10^3/uL (0-0.7); Absolute Immature Granulocytes 0.1 10^3/uL (0-0.05); Absolute Lymphocytes 1.5 10^3/uL (1.2-3.4); Absolute Monocytes 1.3 10^3/uL (0.1-0.6); Absolute Neutrophils 8.2 10^3/uL (1.4-6.5); Hematocrit 35.8 % (39.0-52.0); Hemoglobin 11.5 g/dL (13.0-18.0); Mean Corp Hgb Conc. 32.1 g/dL (33.0-37.0); Mean Corpuscular Hgb 29.3 pg (27.0-31.0); Mean Corpuscular Volume 91.3 fL (80.0-94.0); Mean Platelet Volume 10.1 fL (7.4-10.4); Nucleated Red Blood Cells % 0 % (-); Platelet Count 242 10^3/uL (130-400); Red Blood Cell Count 3.92 10^6/uL (4.70-6.10); Red Cell Dist. Width 14.4 % (11.5-14.5); White Blood Cell Count 11.2 10^3/uL (4.8-10.8)
[2023-10-28 08:30] LABS: Blood Urea Nitrogen 20 mg/dl (9-20); Calcium 8.3 mg/dl (8.4-10.2); Carbon Dioxide 27 mmol/L (22-30); Chloride 103 mmol/L (98-107); Estimated Creatinine Clearance 36 ml/min; Glucose 119 mg/dl (70-99); Potassium 3.9 mmol/L (3.5-5.1); Sodium 134 mmol/L (135-145); eGFR 49.25
[2023-10-28] MEDS: NOVOLOG FLEXPEN-LOW RESISTANCE SC ×3 (09:34→19:02)
[2023-10-28] MEDS: TIMOPTIC 0.5% OPHTHALMIC SOLUTION 1 DROP BOTH EYES (09:59)
[2023-10-28] MEDS: HEPARIN 5000 UNITS SC ×2 (10:00→21:41)
[2023-10-28] MEDS: GLUCOPHAGE 500 MG PO ×2 (10:00→21:41)
[2023-10-28] MEDS: FLOMAX 0.400000000000000022 MG PO (10:00)
[2023-10-28] MEDS: PLAVIX 75 MG PO (10:00)
[2023-10-28] MEDS: FARXIGA 10 MG PO (10:01)
[2023-10-28] MEDS: PACERONE 200 MG PO (10:01)
[2023-10-28] MEDS: ASPIR LOW (ENTERIC COATED) 81 MG PO (10:01)
--- NOTE | 2023-10-28 10:21 | W.PN.HOSP.TC ---
Today's Communication/Plan
-
Continue antibiotics
Await cultures
PT
Assessment / Plan
Assessment / Plan
Gen-awake, alert, NAD
HEENT-NC, AT, anicteric, clear oral mm
Neck-supple
CV-reg, no M, +S1/S2
Lungs-clear B/L
Abd-soft, NT, ND
Ext-no edema
Musculoskeletal-no cyanosis, clubbing
Skin-warm and dry
Neuro-grossly non-focal
Psych-calm, cooperative
E. coli sepsis -possibly due to UTI. Hemodynamically stable. White blood cell count coming down. Afebrile. Continue IV Rocephin per infectious disease. Repeat blood cultures pending. Urine culture pending.
DM2 with hyperglycemia -glucose 119 this morning.� Recent hemoglobin A1c 12.8% in September.� Resume for Farxiga, saxagliptin, metformin.� Continue low resistance NovoLog scale.
Hyponatremia -sodium 134. Monitor for now.
Essential hypertension -stable.
CKD 3B -renal function appears to be at baseline.
CAD -stable.
ICD
Hyperlipidemia -continue Lipitor.
BPH -with prior episode of urinary retention.� Check bladder scans.
Alzheimer's dementia
DNR
PT/OT
Anticipated Discharge: Within 24 hours
Subjective/Interval History
-
Date of Service: October 28, 2023
Patient seen and examined. No complaints.
Objective Data
-
Labs:
Laboratory Results
10/28/23
07:34
WBC 11.2 H
Hgb 11.5 L
Hct 35.8 L
Plt Count 242
Sodium 134 L
Potassium 3.9
Chloride 103
Carbon Dioxide 27
BUN 20
Creatinine 1.4 H
Glucose 119 H
Calcium 8.3 L
Vital Signs:
Vital Signs
Temp Pulse Resp BP Pulse Ox
97.7 F 62 20 132/68 99
10/28/23 07:30 10/28/23 07:30 10/28/23 07:30 10/28/23 07:30 10/28/23 07:30
I&O
10/27/23 10/28/23 10/29/23
06:59 06:59 06:59
Intake Total 1360 / 1360
Balance 1360 / 1360
Review of Systems
-
History Source: Patient
All other systems: Reviewed and negative
[2023-10-28 12:13] LABS: Glucose - Point of Care 130 mg/dl (70-99)
--- NOTE | 2023-10-28 12:33 | CM ---
Addendum entered by Adelaide Lozano 10/28/23 14:32:
CM spoke with patients Roxanne yLn, patient was at [facility] but was discharged home. Per , patient is current with [facility]. reports patient has a cane and walker for ambulation.
Original Note:
Patient seen bedside, initial assessment completed. Patient reports he is from [facility]. Patient reports he lives with Marian and has three children who are supportive. Patient reports he has had home PT services in the past,
reports he does not get around like he used too. Patient PCP Dr. Kenya Mariee, pharmacy [facility] in [place] CM will continue to follow for discharge planning needs.
CM left voicemail for Erna in Admissions at [facility] to confirm [place] from [place] vs [place]. CM will continue to follow for discharge planning needs.
Plan; return to [facility] with home PT, confirmed with Tonya from [facility], patient is current.
--- NOTE | 2023-10-28 12:41 | W.PN.ID1 ---
Date of Service
Date of Service: October 28, 2023
Today's Communication
Continue ceftriaxone.
Assessment / Plan
# E. coli bacteremia
# E. coli UTI
# Leukocytosis- resolving
-Repeat blood cx's neg to date
-Continue ceftriaxone.
Will transition to po abx when susceptibility available.
-Trend wbc.
#Additional Past Medical History:
DM
dementia
CAD s/p stent
ICD placement
HTN
BPH
CKD3b
Chief Complaint
-: Bacteremia
Subjective / Review of Systems
Feels well.
Vital Signs / Physical Exam
Vital Signs
Vital Signs
Temp Pulse Resp BP Pulse Ox
97.7 F 62 20 132/68 99
10/28/23 07:30 10/28/23 07:30 10/28/23 07:30 10/28/23 07:30 10/28/23 07:30
Physical Exam
Constitutional: No Acute Distress and Comfortable
Genito-Urinary: Negative Cintron or CVA Tenderness
Objective Data
Lab Data
Lab Results
10/28/23 07:34
10/28/23 07:34
Estimated Creat Clear 36 ml/min 10/28/23 07:34
Lactic Acid 1.5 mmol/L (0.7-2.0) 10/27/23 16:54
Total Bilirubin 0.6 mg/dl (0.2-1.3) 10/27/23 10:24
AST 27 U/L (17-59) 10/27/23 10:24
ALT 21 U/L (0-50) 10/27/23 10:24
Alkaline Phosphatase 72 U/L (38-126) 10/27/23 10:24
Most recent labs reviewed.
Micro Results:
10/27/23 10:24 Blood Culture - Preliminary
Blood/Venous No Growth in 24 hours- Final report to follow
10/27/23 10:24 Blood Culture - Preliminary
Blood/Venous No Growth in 24 hours- Final report to follow
10/26/23 CXR: no pneumonia
[2023-10-28 15:00] VITALS: BP 174/69
[2023-10-28 17:03] LABS: Glucose - Point of Care 141 mg/dl (70-99)
[2023-10-28] MEDS: LIPITOR 40 MG PO (20:02)
[2023-10-28] MEDS: VITAMIN B-12 2000 MCG PO (20:02)
[2023-10-28] MEDS: PROSCAR 5 MG PO (20:03)
[2023-10-28] MEDS: ROCEPHIN 1000 MG IV (20:03)
[2023-10-28] MEDS: JANUVIA 100 MG PO (20:03)
[2023-10-28] MEDS: STERILE WATER FOR INJECTION 10 ML IV (20:03)
[2023-10-28] MEDS: TOPROL XL 100 MG PO (20:06)
[2023-10-28 21:49] LABS: Glucose - Point of Care 120 mg/dl (70-99)
[2023-10-28 23:40] VITALS: BP 139/63
[2023-10-29 07:30] VITALS: BP 138/53
[2023-10-29 07:33] LABS: Glucose - Point of Care 131 mg/dl (70-99)
[2023-10-29] MEDS: NOVOLOG FLEXPEN-LOW RESISTANCE SC (08:30)
--- NOTE | 2023-10-29 08:46 | W.PN.HOSP.TC ---
Addendum entered and electronically signed by Toby Taveras DO 10/29/23 13:53:
Culture sensitivity resulted. Discussed with infectious disease, recommendation for oral cefdinir to start tomorrow.
Medically stable for discharge home today with VN.
Updated case management.
Updated on the phone with discharge instructions.
Recommend outpatient follow-up with PCP next week as well as patient's urologist located in [facility]. Discussed with patient's in detail.
Original Note:
Today's Communication/Plan
-
Await culture sensitivity
Await labs
Assessment / Plan
Assessment / Plan
Gen-awake, alert, NAD
HEENT-NC, AT, anicteric, clear oral mm
Neck-supple
CV-reg, no M, +S1/S2
Lungs-clear B/L
Abd-soft, NT, ND
Ext-no edema
Musculoskeletal-no cyanosis, clubbing
Skin-warm and dry
Neuro-grossly non-focal
Psych-calm, cooperative
E. coli sepsis - due to UTI. Hemodynamically stable. White blood cell count coming down. Afebrile. Continue IV Rocephin per infectious disease. Repeat blood cultures negative so far. Urine culture shows greater than 100,000 E. coli. CBC
pending for today.
DM2 with hyperglycemia -glucose 131 this morning.� Recent hemoglobin A1c 12.8% in September.� Continue Farxiga, saxagliptin, metformin.� Continue low resistance NovoLog scale. Glucose is under good control in the hospital.
Hyponatremia -sodium pending for today.
Essential hypertension -stable.
CKD 3B -renal function appears to be at baseline.
CAD -stable.
ICD
Hyperlipidemia -continue Lipitor.
BPH -with prior episode of urinary retention.� Check bladder scans.
Alzheimer's dementia
DNR
PT/OT -Home health recommended.
Dispo -anticipate discharge once culture sensitivity has returned.
Anticipated Discharge: Within 24 hours
Subjective/Interval History
-
Date of Service: October 29, 2023
Patient seen and examined. No complaints. Asking about discharge plans.
Objective Data
-
Labs:
Laboratory Results
10/29/23
08:17
WBC Pending
Hgb Pending
Hct Pending
Plt Count Pending
Sodium Pending
Potassium Pending
Chloride Pending
Carbon Dioxide Pending
BUN Pending
Creatinine Pending
Glucose Pending
Calcium Pending
Vital Signs:
Vital Signs
Temp Pulse Resp BP Pulse Ox
98.3 F 60 20 138/53 97
10/29/23 07:30 10/29/23 07:30 10/29/23 07:30 10/29/23 07:30 10/29/23 07:30
I&O
10/28/23 10/29/23 10/30/23
06:59 06:59 06:59
Intake Total 1360 / 1360 1080 / 1080
Balance 1360 / 1360 1080 / 1080
Review of Systems
-
History Source: Patient
All other systems: Reviewed and negative
[2023-10-29 08:55] LABS: % Basophils 0.4 % (0-2); % Eosinophils 1.8 % (0-6); % Immature Granulocytes 0.7 % (0-0.5); % Lymphocytes 16.6 % (20.5-51.1); % Monocytes 9.5 % (1.7-9.3); Absolute Eosinophils 0.1 10^3/uL (0-0.7); Absolute Immature Granulocytes 0.1 10^3/uL (0-0.05); Absolute Lymphocytes 1.2 10^3/uL (1.2-3.4); Absolute Monocytes 0.7 10^3/uL (0.1-0.6); Absolute Neutrophils 5.3 10^3/uL (1.4-6.5); Hematocrit 36.7 % (39.0-52.0); Hemoglobin 11.9 g/dL (13.0-18.0); Mean Corp Hgb Conc. 32.4 g/dL (33.0-37.0); Mean Corpuscular Volume 89.5 fL (80.0-94.0); Mean Platelet Volume 10.4 fL (7.4-10.4); Nucleated Red Blood Cells % 0 % (-); Platelet Count 249 10^3/uL (130-400); Red Cell Dist. Width 13.9 % (11.5-14.5); White Blood Cell Count 7.4 10^3/uL (4.8-10.8)
--- NOTE | 2023-10-29 09:28 | CM ---
Addendum entered by Ele Roblero 10/29/23 16:14:
IMM completed and signed form on chart. Update texted to [facility]
Original Note:
Patient seen at bedside. Patient indicated that he was hoping to go home today. Patient will need IMM. Patient for TODD with [facility]. CM called to Tonya from [facility] who assured CM that everything was in place. CM will continue to follow for discharge
planning needs.
Plan; home with [facility].
[2023-10-29] MEDS: TIMOPTIC 0.5% OPHTHALMIC SOLUTION 1 DROP BOTH EYES (09:51)
[2023-10-29] MEDS: HEPARIN 5000 UNITS SC (09:52)
[2023-10-29] MEDS: FLOMAX 0.400000000000000022 MG PO (09:52)
[2023-10-29] MEDS: GLUCOPHAGE 500 MG PO (09:52)
[2023-10-29] MEDS: FARXIGA 10 MG PO (09:52)
[2023-10-29] MEDS: ASPIR LOW (ENTERIC COATED) 81 MG PO (09:52)
[2023-10-29] MEDS: PACERONE 200 MG PO (09:53)
[2023-10-29] MEDS: PLAVIX 75 MG PO (09:53)
[2023-10-29 10:02] LABS: Blood Urea Nitrogen 19 mg/dl (9-20); Calcium 8.5 mg/dl (8.4-10.2); Carbon Dioxide 22 mmol/L (22-30); Chloride 105 mmol/L (98-107); Estimated Creatinine Clearance 42 ml/min; Glucose 125 mg/dl (70-99); Potassium 4.1 mmol/L (3.5-5.1); Sodium 134 mmol/L (135-145); eGFR 59.26
--- NOTE | 2023-10-29 11:38 | W.PN.ID1 ---
Date of Service
Date of Service: October 29, 2023
Today's Communication
Give another dose of ceftriaxone at 2pm (d4) then tomorrow start cefdinir 300mg po bid x 10 more days
DC home after dose of ceftriaxone.
Assessment / Plan
# E. coli bacteremia
# E. coli UTI
# Leukocytosis- resolved
-Repeat blood cx's neg to date
-Give another dose of ceftriaxone at 2pm (d4) then tomorrow start cefdinir 300mg po bid x 10 more days,
#Additional Past Medical History:
DM
dementia
CAD s/p stent
ICD placement
HTN
BPH
CKD3b
Chief Complaint
-: Bacteremia
Subjective / Review of Systems
No complaints
Vital Signs / Physical Exam
Vital Signs
Vital Signs
Temp Pulse Resp BP Pulse Ox
98.3 F 60 20 138/53 97
10/29/23 07:30 10/29/23 07:30 10/29/23 07:30 10/29/23 07:30 10/29/23 09:00
Physical Exam
Constitutional: No Acute Distress and Comfortable
Pulmonary: Clear
Gastrointestinal: Soft, Non Tender and Non Distended
Genito-Urinary: Negative CVA Tenderness
Objective Data
Lab Data
Lab Results
10/29/23 08:17
10/29/23 08:17
Estimated Creat Clear 42 ml/min 10/29/23 08:17
Lactic Acid 1.5 mmol/L (0.7-2.0) 10/27/23 16:54
Total Bilirubin 0.6 mg/dl (0.2-1.3) 10/27/23 10:24
AST 27 U/L (17-59) 10/27/23 10:24
ALT 21 U/L (0-50) 10/27/23 10:24
Alkaline Phosphatase 72 U/L (38-126) 10/27/23 10:24
Most recent labs reviewed.
Micro Results:
10/27/23 10:24 Blood Culture - Preliminary
Blood/Venous No Growth in 48 hours- Final report to follow
10/27/23 10:24 Blood Culture - Preliminary
Blood/Venous No Growth in 48 hours- Final report to follow
10/26/23 CXR: no pneumonia
Care Review
Plan reviewed with: Physician (Dr. Luis)
[2023-10-29 12:29] LABS: Glucose - Point of Care 157 mg/dl (70-99)
[2023-10-29] MEDS: NOVOLOG FLEXPEN-LOW RESISTANCE 1 UNITS SC (13:28)
--- NOTE | 2023-10-29 13:49 | W.DS.TRANS ---
DC Summary - Religious Leader
-
Discharge Instructions:
Discharge Diagnosis/Procedures Sepsis, UTI, hyponatremia
Diet Diabetic, Carb Controlled,Restrict fluids to 48
oz
Activity With assistance,As tolerated
Driving Restrictions No driving
Bathing Restrictions None
Other Services VN
Instructions:
Stand-Alone Forms:
Changes to Home Medications: No
Discharge Medications:
DC Medications w/original date entered in [employer] ([employer])
acetaminophen 325 mg tablet (Tylenol) 650 mg PO DAILYPRN PRN fever 09/20/23
amiodarone 200 mg tablet 200 mg PO DAILY Arrhythmia 09/20/23
aspirin 81 mg tablet,delayed release 81 mg PO DAILY Blood Clot Prevention/Tx 09/20/23
atorvastatin 40 mg tablet (Lipitor) 40 mg PO QPM High Cholesterol 09/20/23
clopidogrel 75 mg tablet (Plavix) 75 mg PO DAILY Blood Clot Prevention/Tx 09/20/23
finasteride 5 mg tablet 5 mg PO QPM Urinary Issue 09/20/23
dapagliflozin propanediol 10 mg tablet (Farxiga) 10 mg PO DAILY #0 tabs 09/25/23
cyanocobalamin (vitamin B-12) 2,000 mcg tablet 2,000 mcg PO QPM 10/27/23
metformin 500 mg tablet 500 mg PO BID 10/27/23
metoprolol succinate 100 mg tablet,extended release 24 hr 100 mg PO QPM 10/27/23
saxagliptin 5 mg tablet 5 mg PO QPM 10/27/23
silodosin 4 mg capsule 4 mg PO DAILY 10/27/23
timolol maleate 0.5 % eye drops 1 drp BOTH EYES DAILY 10/27/23
cefdinir 300 mg capsule 300 mg PO BID #20 caps 10/29/23
Home Medication Changes
Pending Results: No
[2023-10-29] MEDS: ROCEPHIN 2000 MG IV (14:20)
[2023-10-29] MEDS: STERILE WATER FOR INJECTION 20 ML IV (14:21)
[2023-10-29 15:00] VITALS: BP 140/78
== END 2023-10-29 16:09 | disposition home health service (06) | DRG 872 ==
LOC: 4 WEST ACU 11:33
PROVIDERS: ADMITTING PHYSICIAN Hospitalist; CONSULT PHYSICIAN Internal Medicine Infectious Disease; EMERGENCY PHYSICIAN Emergency Medicine; FAMILY PHYSICIAN Family Medicine
DX: A41.51 Sepsis due to Escherichia coli [E. coli] (principal); N39.0 Urinary tract infection, site not specified; E87.20 Acidosis, unspecified; E87.1 Hypo-osmolality and hyponatremia; E11.65 Type 2 diabetes mellitus with hyperglycemia; E78.00 Pure hypercholesterolemia, unspecified; N18.32 Chronic kidney disease, stage 3b; I12.9 Hypertensive chronic kidney disease with stage 1 through stage 4 chronic kidney disease, or unspecified chronic kidney disease; I25.10 Atherosclerotic heart disease of native coronary artery without angina pectoris; F02.80 Dementia in other diseases classified elsewhere, unspecified severity, without behavioral disturbance, psychotic disturbance, mood disturbance, and anxiety; N40.1 Benign prostatic hyperplasia with lower urinary tract symptoms; R33.8 Other retention of urine; G30.9 Alzheimer's disease, unspecified; E11.22 Type 2 diabetes mellitus with diabetic chronic kidney disease; Z79.02 Long term (current) use of antithrombotics/antiplatelets; Z79.84 Long term (current) use of oral hypoglycemic drugs; Z79.82 Long term (current) use of aspirin; Z95.5 Presence of coronary angioplasty implant and graft; Z95.810 Presence of automatic (implantable) cardiac defibrillator; Z66 Do not resuscitate
CPT/HCPCS: 80048; 80053; 81003; 82962; 83605; 85025; 87040; 96374; 97162; 99285